=== PATIENT | male | born 1960 | race Hispanic/Latino ===

== ENCOUNTER 2017-05-16 20:23 | Inpatient (IN) | payer OTHER ==
[2017-05-16] MEDS ORDERED: levoFLOXacin 750 mg in D5W 750 MG/150 ML BAG IVPB STA (21:16)
[2017-05-16] MEDS ORDERED: Sodium Chloride 0.9% 1,000 ML IV STA (21:17)
[2017-05-16] MEDS ORDERED: Albuterol 0.083% Inhal Sol (2.5 mg/3 mL) UD IH STA (21:30)
--- NOTE | 2017-05-16 21:37 | ED PDOC ---
Arrival/HPI <Jayant Quinonez - Last Filed: 05/16/17 23:08> - General Historian: Patient, Family - History of Present Illness Time/Duration: Other (last night) Symptom Onset: Gradual Symptom Course: Worsening Quality: Aching Severity Level: 7 <Adrienne Stuart - Last Filed: 05/17/17 00:19> - General Chief Complaint: Cough, Cold, Congestion Time Seen by Provider: 05/16/17 20:27 - History of Present Illness Narrative History of Present Illness (Text): 05/16/17 21:32 56yr old male presents today sent in by urgent care for evaluation of Pneumonia. pt states yesterday he started to fell a fullness in his chest. pt states he vomited twice last night. pt states he was having fever of 101 at home. pt denies abdominal pain. pt c/o generalized weakness. pt states he is a diabetic. denies diarrhea. pt c/o cp, cough, sob. pt states he went to urgent care and had xray which showed Pneumonia and was told to come to ER. no medications were given in urgent care. (Adrienne Stuart) Past Medical History - Provider Review Nursing Documentation Reviewed: Yes - Travel History Have you recently traveled outside [place] w/in the past 3 mons?: No - Tetanus Immunization Tetanus Immunization: Unknown - Pulmonary Hx Asthma: Yes - Endocrine/Metabolic Hx Diabetes Mellitus Type 2: Yes - Psychiatric Hx Substance Use: No - Surgical History Other/Comment: brain surgery 12 years ago - Anesthesia Hx Anesthesia: Yes <Adrienne Stuart - Last Filed: 05/17/17 00:19> Family/Social History - Physician Review Nursing Documentation Reviewed: Yes Family/Social History: Unknown Family HX Smoking Status: Never Smoked Hx Alcohol Use: No Hx Substance Use: No <Adrienne Stuart - Last Filed: 05/17/17 00:19> Allergies/Home Meds <Jayant Quinonez - Last Filed: 05/16/17 23:08> <Adrienne Stuart - Last Filed: 05/17/17 00:19> Allergies/Adverse Reactions: Allergies Penicillins Allergy (Verified 05/16/17 21:03) ITCHING Home Medications: Home Meds Medication Instructions Recorded Confirmed Albuterol HFA [Ventolin HFA 90 1 puff IH Q3 PRN 05/16/17 05/16/17 mcg/actuation (8 g)] Atorvastatin [Lipitor] 20 mg PO DAILY 05/16/17 05/16/17 Lisinopril [Zestril] 10 mg PO DAILY 05/16/17 05/16/17 Naltrexone HCl/Bupropion HCl 90 mg PO DAILY 05/16/17 05/16/17 [Contrave ER 8-90 mg Tablet] Quetiapine Fumarate [Seroquel] 100 mg PO DAILY 05/16/17 05/16/17 metFORMIN [glucOPHAGE] 500 mg PO BID 05/16/17 05/16/17 Review of Systems - Review of Systems Constitutional: Fatigue, Fevers Eyes: absent: Vision Changes, Photophobia ENT: absent: Sore Throat, Sinus Congestion Respiratory: SOB, Cough, Wheezing Cardiovascular: Chest Pain. absent: Palpitations Gastrointestinal: Vomiting. absent: Abdominal Pain, Nausea Genitourinary Male: absent: Dysuria Musculoskeletal: absent: Arthralgias, Back Pain, Neck Pain Skin: absent: Rash, Pruritis Neurological: absent: Headache, Dizziness Psychiatric: absent: Anxiety, Depression <Adrienne Stuart T - Last Filed: 05/17/17 00:19> Physical Exam Vital Signs Reviewed: Yes Temperature: Febrile Blood Pressure: Normal Pulse: Tachycardic Respiratory Rate: Normal Appearance: Positive for: Well-Appearing, Non-Toxic, Comfortable Pain Distress: None Mental Status: Positive for: Alert and Oriented X 3 - Systems Exam Head: Present: Atraumatic Mouth: Present: Moist Mucous Membranes Neck: Present: Normal Range of Motion, Trachea Midline. No: Meningeal Signs Respiratory/Chest: Present: Good Air Exchange, Wheezes, Rhonchi, Tachypneic. No : Clear to Auscultation, Respiratory Distress, Accessory Muscle Use Cardiovascular: Present: Tachycardic. No: Murmurs Abdomen: No: Tenderness, Distention, Rebound, Guarding Back: Present: Normal Inspection Upper Extremity: Present: Normal ROM Lower Extremity: Present: Normal ROM Neurological: Present: GCS=15, Speech Normal Skin: Present: Warm, Dry, Normal Color. No: Rashes Psychiatric: Present: Alert, Oriented x 3 <Adrienne Stuart T - Last Filed: 05/17/17 00:19> Vital Signs Temp Pulse Resp BP Pulse Ox 05/16/17 23:18 98.4 F 98 H 18 79/39 L 95 05/16/17 23:10 98.4 F 112 H 16 82/30 L 92 L 05/16/17 22:55 98.4 F 103 H 15 93/51 L 94 L 05/16/17 22:40 98.4 F 102 H 15 101/42 L 94 L 05/16/17 22:25 98.5 F 98 H 16 94/53 L 95 05/16/17 22:10 98.4 F 99 H 16 99/36 L 94 L 05/16/17 22:00 103.8 F H 05/16/17 21:35 103.8 F H 05/16/17 21:00 99.6 F 118 H 20 107/52 L 93 L Medical Decision Making <Jayant Quinonez - Last Filed: 05/16/17 23:08> <Adrienne Stuart - Last Filed: 05/17/17 00:19> ED Course and Treatment: 05/16/17 21:38 56yr old diabetic male with PNA diagnosed on outpatient xray. pt febrile, tachycardic, hypoxic; pt given NS iv bolus albuterol neb tylenol given PO lactate 3.9; code sepsis called. pt was seen and evaluated by dr. quinonez. cbc; wbc; 19 cmp: bun; 29 cr: 1.5 trop: 0.01 ekgsinus tachycardia at 113 b/m, rbbb cxr; right middle lobe infiltrate pt given 3,930 CC NS in total. blood pressures continue to fluctuate and patient remains slightly hypotensive will consult ICU. Pt seen and evaluated by dr. GOSS, ICU; patient accepted to ICU dr. quinonez spoke with dr. estrada; dr. estrada would like patient to be admitted to hospitalist service. case again discussed with dr. goss; accepts ICU admission to hospitalist service. impression; pneumonia, septic shock admit ICU (Adrienne Stuart) - Lab Interpretations Lab Results: 05/16/17 21:35 05/16/17 21:35 Lab Results 05/16/17 22:42: Phosphorus 1.9 L, Magnesium 1.3 L 05/16/17 21:35: Influenza Typ A,B (EIA) Negative for flu a/b 05/16/17 21:35: pO2 41, VBG pH 7.39, VBG pCO2 40.0, VBG HCO3 24.2, VBG Total CO2 25.4, VBG O2 Sat (Calc) 85.2 H, VBG Base Excess -0.7 L, VBG Potassium 4.7, Sodium 133.0, Chloride 100.0, Glucose 299 H, Lactate 3.9 H, FiO2 21.0, Venous Blood Potassium 4.7 05/16/17 21:35: WBC 19.0 H, RBC 4.67, Hgb 13.7 L, Hct 40.1 L, MCV 85.9, MCH 29.3 , MCHC 34.2, RDW 13.3, Plt Count 210, MPV 9.7, Gran % 91.5 H, Lymph % (Auto) 4.4 L, [place] % (Auto) 4.1, Eos % (Auto) 0.0 L, Baso % (Auto) 0.0, Gran # 17.35 H , Lymph # (Auto) 0.8 L, [place] # (Auto) 0.8 H, Eos # (Auto) 0.0, Baso # (Auto) 0.00, Neutrophils % (Manual) 81 H, Band Neutrophils % 8 H, Lymphocytes % (Manual ) 6 L, Monocytes % (Manual) 5, Platelet Evaluation Normal, Anisocytosis (manual ) Slight 05/16/17 21:35: Sodium 137, Chloride 100, Potassium 4.7, Carbon Dioxide 23, Anion Gap 18, BUN 29 H, Creatinine 1.5, Est GFR ( Amer) 59, Est GFR (Non- Af Amer) 49, Random Glucose 287 H, Calcium 9.6, Total Bilirubin 1.0, AST 45, ALT 58 H, Alkaline Phosphatase 37 L, Lactate Dehydrogenase 425, Total Creatine Kinase 559 H, CK-MB (CK-2) 0.6, CK-MB (CK-2) % Cancelled, Troponin I < 0.01, Total Protein 6.8, Albumin 3.9, Globulin 2.9, Albumin/Globulin Ratio 1.3 05/16/17 21:35: PT 16.3 H, INR 1.42 H, APTT 33.0 - RAD Interpretation Radiology Orders: 05/16/17 21:16 CHEST PORTABLE [RAD] Stat - Medication Orders Current Medication Orders: Acetaminophen (Tylenol 325mg Tab) 650 mg PO Q6H PRN PRN Reason: Fever >100.4 F Albuterol/Ipratropium (Duoneb 3 Mg/0.5 Mg (3 Ml) Ud) 3 ml IH [id number] ANAY Albuterol/Ipratropium (Duoneb 3 Mg/0.5 Mg (3 Ml) Ud) 3 ml IH Q2H PRN PRN Reason: Shortness of Breath Atorvastatin Calcium (Lipitor) 20 mg PO DAILY ANAY Famotidine (Pepcid) 20 mg PO BID ANAY Sodium Chloride (Sodium Chloride 0.9%) 1,000 mls @ 100 mls/hr IV .Q10H ANAY Quetiapine Fumarate (Seroquel) 100 mg PO DAILY ANAY PRN Reason: Protocol Discontinued Medications Acetaminophen (Tylenol 325mg Tab) 975 mg PO STAT STA Stop: 05/16/17 21:16 Last Admin: 05/16/17 22:00 Dose: 975 mg MAR Pain/Vitals Document 05/16/17 22:00 AB (Rec: 05/16/17 22:00 AB [id number]) Vitals Temperature (97.6 F-99.6 F) 103.8 F Temperature Source Rectal Albuterol Sulfate (Albuterol 0.083% Inhal Merle (2.5 Mg/3 Ml) Ud) 2.5 mg IH STAT STA Stop: 05/16/17 21:31 Last Admin: 05/16/17 21:59 Dose: 2.5 mg Levofloxacin/Dextrose (Levaquin 750mg) 750 mg in 150 mls @ 100 mls/hr IVPB STAT STA PRN Reason: Protocol Stop: 05/16/17 22:45 Last Admin: 05/16/17 22:00 Dose: 100 mls/hr eMAR Start Stop Document 05/16/17 22:00 AB (Rec: 05/16/17 22:00 AB [id number]) Intravenous Solution Start Date 05/16/17 Start Time 22:00 End Date 05/16/17 End time 23:30 Total Infusion Time 90 Sodium Chloride (Sodium Chloride 0.9%) 1,000 mls @ 999 mls/hr IV .Q1H1M STA Stop: 05/16/17 22:17 Last Admin: 05/16/17 21:59 Dose: 999 mls/hr eMAR Start Stop Document 05/16/17 21:59 AB (Rec: 05/16/17 21:59 AB [id number]) Intravenous Solution Start Date 05/16/17 Start Time 21:59 End Date 05/16/17 End time 22:59 Total Infusion Time 60 Sodium Chloride (Sodium Chloride 0.9%) 2,930 mls @ 2,000 mls/hr IV .Q1H28M ONE Stop: 05/16/17 23:37 Last Admin: 05/16/17 22:24 Dose: 2,000 mls/hr eMAR Start Stop Document 05/16/17 22:24 AB (Rec: 05/16/17 22:24 AB [id number]) Intravenous Solution Start Date 05/16/17 Start Time 23:37 - PA / BSA OFFICER / Resident Statement / has reviewed & agrees with the documentation as recorded. / has examined the patient and agrees with the treatment plan. <Jayant Quinonez - Last Filed: 05/16/17 23:08> Disposition/Present on Arrival <Jayant Quinonez - Last Filed: 05/16/17 23:08> - Present on Arrival Any Indicators Present on Arrival: No History of DVT/PE: No History of Uncontrolled Diabetes: No Urinary Catheter: No History of Decub. Ulcer: No History Surgical Site Infection Following: None - Disposition Have Diagnosis and Disposition been Completed?: Yes Disposition Time: 23:20 Patient Plan: Admission, ICU <Adrienne Stuart - Last Filed: 05/17/17 00:19> - Disposition Diagnosis: Pneumonia, Septic shock Disposition: HOSPITALIZED Patient Problems: Current Active Problems Problem Status Onset Pneumonia Acute Septic shock Acute Condition: FAIR Referrals: Julien Park [Primary Care Provider] - Follow up with primary Forms: [employer] ([place])
[2017-05-16 22:06] LABS: VENOUS BLOOD GAS BASE EXCESS -0.7 mmol/L (0.0-2.0); VENOUS BLOOD GAS PO2 41 mm/Hg (30-55); VENOUS BLOOD PH 7.39 (7.32-7.43)
[2017-05-16 22:08] LABS: GRAN # 17.35 (1.4-6.5); GRAN % 91.5 % (50.0-68.0); HEMOGLOBIN 13.7 g/dL (14.0-18.0); LYMPH # 0.8 (1.2-3.4); LYMPH % 4.4 % (22.0-35.0); MEAN CELL VOLUME 85.9 fl (80.0-105.0); MEAN CORPUSCULAR HEMOGLOBIN 29.3 pg (25.0-35.0); MEAN CORPUSCULAR HGB CONC 34.2 g/dl (31.0-37.0); MEAN PLATELET VOLUME 9.7 fl (7.0-11.0); MONO # 0.8 (0.1-0.6); MONO % 4.1 % (1.0-6.0); PLATELET COUNT 210 10^3/uL (120.0-450.0); RBC 4.67 10^6/uL (3.5-6.1); RED CELL DISTRIBUTION WIDTH 13.3 % (11.5-14.5)
[2017-05-16] MEDS ORDERED: SODIUM CHLORIDE 0.9% IV ONE (22:10)
[2017-05-16 22:19] LABS: ALB/GLOB RATIO 1.3 (1.1-1.8); ALBUMIN 3.9 g/dL (3.0-4.8); ALT/SGPT 58 U/L (7-56); AST/SGOT 45 U/L (17-59); BLOOD UREA NITROGEN 29 mg/dL (7-21); CALCIUM 9.6 mg/dL (8.4-10.5); GFR AFRICAN-AMERICAN 59; GFR NON-AFRICAN AMERICAN 49
[2017-05-16 22:31] LABS: TROPONIN I < 0.01 ng/mL
[2017-05-16 22:32] LABS: INR 1.42 (0.93-1.08); PROTHROMBIN TIME 16.3 SECONDS (9.4-12.5)
[2017-05-16 22:42] LABS: ANISOCYTOSIS SLIGHT; BAND 8 % (0-2); LYMPHOCYTE 6 % (22.0-35.0); MONOCYTE 5 % (1.0-6.0); NEUTROPHIL 81 % (50.0-70.0); PLATELET ESTIMATE NORMAL (NORMAL)
[2017-05-16 22:44] LABS: CK-MB 0.6 ng/mL (0.0-3.6)
[2017-05-16] MEDS ORDERED: Albuterol-Ipratrop 3 mg / 0.5 (3 ml) UD IH PRN (23:29)
[2017-05-16] MEDS ORDERED: Sodium Chloride 0.9% 1,000 ML IV SCH (23:30)
[2017-05-16] MEDS ORDERED: Potassium Phosphate 15 MMOLE in Sodium Chloride 0.9% 250 ML IVPB ONE (23:33)
[2017-05-16] MEDS ORDERED: Magnesium Sulfate 2 GM in Sodium Chloride 0.9% 100 ML IVPB ONE (23:33)
[2017-05-16] MEDS ORDERED: Vancomycin 1gm in NS 250ml 1 GM/250 ML BAG IVPB STA (23:43)
[2017-05-16] MEDS: Sodium Chloride 0.9% 1,000 ML IV SCH (23:58)
--- NOTE | 2017-05-17 01:00 | PCM.SEPTIC ---
Sepsis Progress Note - Reassessment Type Date of Evaluation: 05/17/17 Time of Evaluation: 12:30 Reassessment Type: Non-invasive reassessment - Non Invasive Reassessment Were the most recent vital sign reviewed: Yes Vital Sign (Latest): Temp Pulse Resp BP Pulse Ox 98.4 F 98 H 18 79/39 L 95 05/16/17 23:18 05/16/17 23:18 05/16/17 23:18 05/16/17 23:18 05/16/17 23:18 Cardiovascular: Yes: Regular Rate, Rhythm. No: JVD, Murmur Respiratory: Yes: Rhonchi. No: Wheezing, Respiratory Distress Capillary Refill: Normal (Less than 2 sec) Skin: Normal Color, Warm, Dry
[2017-05-17 01:18] LABS: VENOUS BLOOD GAS PO2 49 mm/Hg (30-55); VENOUS BLOOD PH 7.31 (7.32-7.43)
[2017-05-17] MEDS: Albuterol-Ipratrop 3 mg / 0.5 (3 ml) UD IH SCH ×4 (01:28→19:59)
--- NOTE | 2017-05-17 03:16 | CP.PCM.CON ---
History of Present Illness - History of Present Illness History of Present Illness: Rina Tinajero, PGY1, ICU Consult Note for Dr Eubanks: CC: sob, cough, fevers 56 year old male with PMH DM, HTN, HLD, seizure disorder (last seizure 12 years ago), psoriasis, presents for sob, fever, chills for past 2 days. Pt went to urgent care for similar symptoms, which showed pneumonia. Pt was sent here for treatment. Pt recalls that he was in in usual state of health until 2 days ago, he started feeling fever 101F, chills, mild cough with white sputum, body aches , with some associated nonbloody, yellow vomiting episodesx2 yesterday, decreased oral food/fluid intake. Denies headache, neck pain, change in mental status, wheezing, cp, pleurisy, abdominal pain, diarrhea, hematochezia, melena, urinary symptoms, leg swelling. Denies recent travel, sick contacts, airplane travel/air conditioning exposure. In ED, pt febrile 103, hypotensive 82/30, leukocytosis 19 with bandemia 8, lactate 3.9, BUN/Cr 29/1.5. Code sepsis called in Ed. Given Vanco and Levaquin, adequate fluid resuscitation with good response. 12 point ROS obtained and negative, except as per HPI. PMH: DM, HTN, HLD, seizure disorder (last seizure 12 years ago), psoriasis PSH: brain surgery x1 All: PCN - rash FH: Mother, brain tumor Father, CABG SH: Works in high school. Denies tobacco/alcohol/drugs. Lives with . Review of Systems - Review of Systems All systems: reviewed and no additional remarkable complaints except Review of Systems: as per hpi Past Patient History - Tetanus Immunizations Tetanus Immunization: Unknown - Past Social History Smoking Status: Never Smoked - PULMONARY Hx Asthma: Yes - ENDOCRINE/METABOLIC Hx Diabetes Mellitus Type 2: Yes - PSYCHIATRIC Hx Substance Use: No - SURGICAL HISTORY Other/Comment: brain surgery 12 years ago - ANESTHESIA Hx Anesthesia: Yes Meds Allergies/Adverse Reactions: Allergies Allergy/AdvReac Type Severity Reaction Status Date / Time Penicillins Allergy ITCHING Verified 05/16/17 21:03 - Medications Medications: Current Medications Acetaminophen (Tylenol 325mg Tab) 650 mg PO Q6H PRN PRN Reason: Fever >100.4 F Albuterol/Ipratropium (Duoneb 3 Mg/0.5 Mg (3 Ml) Ud) 3 ml IH [id number] [facility] Last Admin: 05/17/17 01:28 Dose: 3 ml Albuterol/Ipratropium (Duoneb 3 Mg/0.5 Mg (3 Ml) Ud) 3 ml IH Q2H PRN PRN Reason: Shortness of Breath Atorvastatin Calcium (Lipitor) 20 mg PO DAILY [facility] Famotidine (Pepcid) 20 mg PO BID [facility] Levofloxacin/Dextrose (Levaquin 750mg) 750 mg in 150 mls @ 100 mls/hr IVPB DAILY [facility] PRN Reason: Protocol Potassium Phosphate 15 mmole/ (Sodium Chloride) 255 mls @ 42.5 mls/hr IVPB ONCE ONE Stop: 05/17/17 05:32 Last Admin: 05/16/17 23:58 Dose: 42.5 mls/hr Sodium Chloride (Sodium Chloride 0.9%) 1,000 mls @ 125 mls/hr IV .Q8H [facility] Last Admin: 05/16/17 23:58 Dose: 125 mls/hr Insulin Human Regular (Humulin R Med) 0 units SC ACHS [facility] PRN Reason: Protocol Oseltamivir Phosphate (Tamiflu Cap) 75 mg PO BID [facility] PRN Reason: Protocol Stop: 05/21/17 23:41 Last Admin: 05/16/17 23:58 Dose: 75 mg Quetiapine Fumarate (Seroquel) 100 mg PO DAILY [facility] PRN Reason: Protocol Physical Exam - Constitutional Appears: Non-toxic, No Acute Distress - Head Exam Head Exam: ATRAUMATIC, NORMOCEPHALIC - Eye Exam Eye Exam: EOMI, PERRL. absent: Conjunctival injection, Nystagmus, Scleral icterus Pupil Exam: NORMAL ACCOMODATION, PERRL. absent: Fixed, Irregular, Unequal - ENT Exam ENT Exam: Mucous Membranes Moist - Neck Exam Neck exam: Positive for: Full Rom - Respiratory Exam Respiratory Exam: Decreased Breath Sounds, NORMAL BREATHING PATTERN. absent: Accessory Muscle Use, Rales, Rhonchi, Wheezes, Respiratory Distress, Stridor - Cardiovascular Exam Cardiovascular Exam: RRR, +S1, +S2. absent: Systolic Murmur - GI/Abdominal Exam GI & Abdominal Exam: Normal Bowel Sounds, Soft. absent: Distended, Firm, Guarding, Hernia, Mass, Rigid, Tenderness - Extremities Exam Extremities exam: Positive for: normal inspection. Negative for: calf tenderness, pedal edema - Back Exam Back exam: NORMAL INSPECTION - Neurological Exam Neurological exam: Alert, Oriented x3 - Psychiatric Exam Psychiatric exam: Normal Affect, Normal Mood - Skin Skin Exam: Dry, Normal Color, Warm Results - Vital Signs Recent Vital Signs: Last Vital Signs Temp 98.2 F 05/17/17 01:00 Pulse 105 H 05/17/17 01:00 Resp 16 05/17/17 01:00 BP 123/52 L 05/17/17 01:00 Pulse Ox 94 L 05/17/17 01:00 - Labs Result Diagrams: 05/16/17 21:35 05/16/17 21:35 Labs: Laboratory Results - last 24 hr 05/17/17 01:00 pO2 49 VBG pH 7.31 L VBG pCO2 42.0 VBG HCO3 21.1 VBG Total CO2 22.4 VBG O2 Sat (Calc) 89.8 H VBG Base Excess -5.0 L VBG Potassium 4.1 Sodium 136.0 Chloride 106.0 Glucose 255 H Lactate 3.3 H FiO2 21.0 Venous Blood Potassium 4.1 Assessment & Plan - Assessment and Plan (Free Text) Assessment: 56 year old male with PMH HTN, HLD, DM, presents for sob, cough, found to have pneumonia: Severe sepsis: 2/2 community acquired pneumonia, influenza - febrile 103, hypotensive 82/30, leukocytosis 19 with bandemia 8, lactate 3.9-> 3.3, - Code sepsis called in ED, given 3.9L NS bolus and Levaquin. - CXR shows right middle lobe infiltrate, official read pending - NS@ 125. Maintain MAP>60 - Rapid Influenza negative; antibodies pending - Started on Levaquin, tamiflu - Strep, Legionella - Duonebs harsha, prn - tylenol prn ROLAND: - BUN/Cr 29/1.5 - UA, Uosm, Urine electrolytes - Na, Cr - Gentle hydration - daily cmp Hypomagnesemia: - repleted Hypophosphatemia: - repleted Hx of HLD: - c/w home lipitor Hx of HTN: - hold home antihtn in setting of severe sepsis/hypotension -cont to monitor Hx of DM: - ISS Discussed with Dr Eubanks. - Date & Time Date: 05/17/17 Time: 03:16
[2017-05-17 04:03] VITALS: BMI 41.1
[2017-05-17 04:52] LABS: PH,URINE 5.5 (4.7-8.0); URINE BILIRUBIN SMALL (NEGATIVE); URINE BLOOD NEGATIVE (NEGATIVE); URINE GLUCOSE (UA) NEGATIVE (NEGATIVE); URINE LEUKOCYTE ESTERASE TRACE Leu/uL (NEGATIVE); URINE PROTEIN TRACE mg/dL (<30 mg/dL); URINE UROBILINOGEN 0.2 E.U./dL (<1 E.U./dL)
[2017-05-17 05:00] LABS: URINE APPEARANCE CLEAR (CLEAR); URINE COLOR YELLOW (YELLOW)
[2017-05-17 05:03] LABS: URINE BACTERIA FEW (NEG); URINE COARSE GRANULAR CAST TRACE /hpf (0-2); URINE HYALINE CAST 0 - 2 /hpf; URINE RBC 0 - 2 /hpf (0-2)
[2017-05-17 05:42] LABS: CREATININE,RANDOM URINE 325 mg/dL
[2017-05-17 06:53] LABS: BASO # 0.01 K/mm3 (0.0-2.0); BASO % 0.1 % (0.0-3.0); GRAN # 13.57 (1.4-6.5); GRAN % 87.5 % (50.0-68.0); HEMOGLOBIN 11.8 g/dL (14.0-18.0); LYMPH # 1.2 (1.2-3.4); LYMPH % 7.6 % (22.0-35.0); MEAN CELL VOLUME 86.1 fl (80.0-105.0); MEAN CORPUSCULAR HEMOGLOBIN 28.8 pg (25.0-35.0); MEAN CORPUSCULAR HGB CONC 33.4 g/dl (31.0-37.0); MEAN PLATELET VOLUME 9.6 fl (7.0-11.0); MONO # 0.8 (0.1-0.6); MONO % 4.8 % (1.0-6.0); RBC 4.1 10^6/uL (3.5-6.1); RED CELL DISTRIBUTION WIDTH 13.5 % (11.5-14.5); WHITE BLOOD COUNT 15.5 10^3/ul (4.5-11.0)
[2017-05-17 06:59] LABS: INR 1.59 (0.93-1.08); PROTHROMBIN TIME 18.4 SECONDS (9.4-12.5)
[2017-05-17 07:12] LABS: ALB/GLOB RATIO 1.2 (1.1-1.8); ALBUMIN 3.1 g/dL (3.0-4.8); ALT/SGPT 51 U/L (7-56); AST/SGOT 40 U/L (17-59); BLOOD UREA NITROGEN 25 mg/dL (7-21); CALCIUM 8.2 mg/dL (8.4-10.5); GFR AFRICAN-AMERICAN > 60; GFR NON-AFRICAN AMERICAN > 60
--- NOTE | 2017-05-17 07:58 | CP.CCUPN ---
<KassiJake - Last Filed: 05/17/17 10:02> CCU Subjective - Physician Review Subjective (Free Text): Jake Mcdonald PGY1 ICU Progress Note for Dr. Singh Patient was seen and examined at bedside in ICU. there were no acute overnight events; Tmax from around time of admission was 103.8, however, patient has been afebrile since. The patient states that he is feeling better, breathing better and was feeling warm but comfortable. he denies chest pain, n/v. BP responded to fluid resuscitation and did not require pressors. CCU Objective - Vital Signs / Intake & Output Vital Signs (Last 4 hours): Vital Signs Temp Pulse Resp BP Pulse Ox 05/17/17 06:00 99 H 30 H 108/53 L 92 L 05/17/17 05:00 101 H 27 H 115/49 L 92 L 05/17/17 04:00 98.8 F 99 H 28 H 106/54 L 93 L Intake and Output (Last 8hrs): Intake & Output 05/16/17 05/17/17 05/17/17 22:59 06:59 14:59 Intake Total 1200 Output Total 300 Balance 900 Weight 303 lb Intake: IV 1000 Left Hand 1000 Oral 200 Output: Urine 300 Urine, Voided 300 Other: Voiding Method Urinal - Physical Exam Head: Positive for: Atraumatic, Normocephalic Pupils: Positive for: PERRL Extroacular Muscles: Positive for: EOMI Conjunctiva: Positive for: Normal Mouth: Positive for: Moist Mucous Membranes Neck: Positive for: Normal Range of Motion, Trachea Midline. Negative for: Meningeal Signs Respiratory/Chest: Positive for: Good Air Exchange, Rhonchi (b/l ). Negative for: Clear to Auscultation, Respiratory Distress, Accessory Muscle Use, Wheezes , Tachypneic Cardiovascular: Positive for: Regular Rate and Rhythm, Normal S1, S2. Negative for: Murmurs Abdomen: Positive for: Normal Bowel Sounds, Other (obese male). Negative for: Tenderness, Distention, Rebound, Guarding Back: Positive for: Normal Inspection Upper Extremity: Positive for: Normal Inspection, Normal ROM Lower Extremity: Positive for: Normal Inspection, Normal ROM Neurological: Positive for: GCS=15, CN II-XII Intact, Speech Normal Skin: Positive for: Warm, Dry, Normal Color. Negative for: Rashes Psychiatric: Positive for: Alert, Oriented x 3, Normal Insight, Normal Concentration - Medications Active Medications: Active Medications Generic Name Dose Route Start Last Admin Trade Name Freq PRN Reason Stop Dose Admin Acetaminophen 650 mg 05/16/17 23:29 Tylenol 325mg Tab PO Q6H PRN Fever >100.4 F Albuterol/Ipratropium 3 ml 05/17/17 02:00 05/17/17 07:15 Duoneb 3 Mg/0.5 Mg (3 Ml) Ud IH 3 ml [id number] HARSHA Administration Albuterol/Ipratropium 3 ml 05/16/17 23:29 Duoneb 3 Mg/0.5 Mg (3 Ml) Ud IH Q2H PRN Shortness of Breath Atorvastatin Calcium 20 mg 05/17/17 10:00 Lipitor PO DAILY HARSHA Famotidine 20 mg 05/17/17 10:00 Pepcid PO BID HARSHA Levofloxacin/Dextrose 750 mg in 150 mls @ 100 mls/hr 05/17/17 10:00 Levaquin 750mg IVPB DAILY [facility] Protocol Sodium Chloride 1,000 mls @ 125 mls/hr 05/16/17 23:37 05/16/17 23:58 Sodium Chloride 0.9% IV 125 mls/hr .Q8H HARSHA Administration Insulin Human Regular 0 units 05/17/17 07:30 Humulin R Med SC [facility] Protocol Oseltamivir Phosphate 75 mg 05/16/17 23:45 05/16/17 23:58 Tamiflu Cap PO 05/21/17 23:41 75 mg BID HARSHA Administration Protocol Quetiapine Fumarate 100 mg 05/17/17 10:00 Seroquel PO DAILY [facility] Protocol - Patient Studies Lab Studies: Lab Studies 05/17/17 05/17/17 05/17/17 Range/Units 06:00 06:00 06:00 WBC 15.5 H (4.5-11.0) 10^3/ul RBC 4.10 (3.5-6.1) 10^6/uL Hgb 11.8 L (14.0-18.0) g/dL Hct 35.3 L (42.0-52.0) % MCV 86.1 (80.0-105.0) fl MCH 28.8 (25.0-35.0) pg MCHC 33.4 (31.0-37.0) g/dl RDW 13.5 (11.5-14.5) % Plt Count 159 (120.0-450.0) 10^3/uL MPV 9.6 (7.0-11.0) fl Gran % 87.5 H (50.0-68.0) % Lymph % (Auto) 7.6 L (22.0-35.0) % [place] % (Auto) 4.8 (1.0-6.0) % Eos % (Auto) 0.0 L (1.5-5.0) % Baso % (Auto) 0.1 (0.0-3.0) % Gran # 13.57 H (1.4-6.5) Lymph # (Auto) 1.2 (1.2-3.4) [place] # (Auto) 0.8 H (0.1-0.6) Eos # (Auto) 0.0 (0.0-0.7) Baso # (Auto) 0.01 (0.0-2.0) K/mm3 PT 18.4 H (9.4-12.5) SECONDS INR 1.59 H (0.93-1.08) pO2 (30-55) mm/Hg VBG pH (7.32-7.43) VBG pCO2 (40-60) VBG HCO3 (21-28) mmol/l VBG Total CO2 (22-28) mmol.L VBG O2 Sat (Calc) (40-65) % VBG Base Excess (0.0-2.0) mmol/L VBG Potassium (3.6-5.2) mmol/L Sodium 138 (132-148) mmol/L Chloride 107 (98-107) mmol/L Glucose (75-110) mg/dl Lactate (0.7-2.1) mmol/L FiO2 % Potassium 4.2 (3.6-5.0) mmol/L Carbon Dioxide 20 L (21-33) mmol/L Anion Gap 16 (10-20) BUN 25 H (7-21) mg/dL Creatinine 1.0 (0.8-1.5) mg/dl Est GFR ( Amer) > 60 Est GFR (Non-Af Amer) > 60 Random Glucose 210 H (70-110) mg/dL Calcium 8.2 L (8.4-10.5) mg/dL Phosphorus 2.8 (2.5-4.5) mg/dL Magnesium 1.6 L (1.7-2.2) mg/dL Total Bilirubin 0.6 (0.2-1.3) mg/dL AST 40 (17-59) U/L ALT 51 (7-56) U/L Alkaline Phosphatase 35 L (38-126) U/L Total Protein 5.8 (5.8-8.3) g/dL Albumin 3.1 (3.0-4.8) g/dL Globulin 2.7 gm/dL Albumin/Globulin Ratio 1.2 (1.1-1.8) Venous Blood Potassium (3.6-5.2) mmol/L Urine Color (YELLOW) Urine Appearance (CLEAR) Urine pH (4.7-8.0) Ur Specific [place] (1.005-1.035) Urine Protein (<30 mg/dL) mg/dL Urine Glucose (UA) (NEGATIVE) mg/dL Urine Ketones (NEGATIVE) mg/dL Urine Blood (NEGATIVE) Urine Nitrate (NEGATIVE) Urine Bilirubin (NEGATIVE) Urine Urobilinogen (<1 E.U./dL) E.U./dL Ur Leukocyte Esterase (NEGATIVE) Dannielle/uL Urine RBC (0-2) /hpf Urine WBC (0-6) /hpf Ur Epithelial Cells (0-5) /hpf Urine Bacteria (NEG) Hyaline Casts /hpf Coarse Granular Casts (0-2) /hpf Ur Random Creatinine mg/dL Ur Random Sodium meq/L 05/17/17 05/17/17 05/17/17 Range/Units 03:25 03:25 01:00 WBC (4.5-11.0) 10^3/ul RBC (3.5-6.1) 10^6/uL Hgb (14.0-18.0) g/dL Hct (42.0-52.0) % MCV (80.0-105.0) fl MCH (25.0-35.0) pg MCHC (31.0-37.0) g/dl RDW (11.5-14.5) % Plt Count (120.0-450.0) 10^3/uL MPV (7.0-11.0) fl Gran % (50.0-68.0) % Lymph % (Auto) (22.0-35.0) % [place] % (Auto) (1.0-6.0) % Eos % (Auto) (1.5-5.0) % Baso % (Auto) (0.0-3.0) % Gran # (1.4-6.5) Lymph # (Auto) (1.2-3.4) [place] # (Auto) (0.1-0.6) Eos # (Auto) (0.0-0.7) Baso # (Auto) (0.0-2.0) K/mm3 PT (9.4-12.5) SECONDS INR (0.93-1.08) pO2 49 (30-55) mm/Hg VBG pH 7.31 L (7.32-7.43) VBG pCO2 42.0 (40-60) VBG HCO3 21.1 (21-28) mmol/l VBG Total CO2 22.4 (22-28) mmol.L VBG O2 Sat (Calc) 89.8 H (40-65) % VBG Base Excess -5.0 L (0.0-2.0) mmol/L VBG Potassium 4.1 (3.6-5.2) mmol/L Sodium 136.0 (132-148) mmol/L Chloride 106.0 (98-107) mmol/L Glucose 255 H (75-110) mg/dl Lactate 3.3 H (0.7-2.1) mmol/L FiO2 21.0 % Potassium (3.6-5.0) mmol/L Carbon Dioxide (21-33) mmol/L Anion Gap (10-20) BUN (7-21) mg/dL Creatinine (0.8-1.5) mg/dl Est GFR ( Amer) Est GFR (Non-Af Amer) Random Glucose (70-110) mg/dL Calcium (8.4-10.5) mg/dL Phosphorus (2.5-4.5) mg/dL Magnesium (1.7-2.2) mg/dL Total Bilirubin (0.2-1.3) mg/dL AST (17-59) U/L ALT (7-56) U/L Alkaline Phosphatase (38-126) U/L Total Protein (5.8-8.3) g/dL Albumin (3.0-4.8) g/dL Globulin gm/dL Albumin/Globulin Ratio (1.1-1.8) Venous Blood Potassium 4.1 (3.6-5.2) mmol/L Urine Color Yellow (YELLOW) Urine Appearance Clear (CLEAR) Urine pH 5.5 (4.7-8.0) Ur Specific [place] 1.025 (1.005-1.035) Urine Protein Trace H (<30 mg/dL) mg/dL Urine Glucose (UA) Negative (NEGATIVE) mg/dL Urine Ketones Trace H (NEGATIVE) mg/dL Urine Blood Negative (NEGATIVE) Urine Nitrate Positive H (NEGATIVE) Urine Bilirubin Small H (NEGATIVE) Urine Urobilinogen 0.2 (<1 E.U./dL) E.U./dL Ur Leukocyte Esterase Trace H (NEGATIVE) Dannielle/uL Urine RBC 0 - 2 (0-2) /hpf Urine WBC 5 - 10 (0-6) /hpf Ur Epithelial Cells 3 - 4 (0-5) /hpf Urine Bacteria Few (NEG) Hyaline Casts 0 - 2 /hpf Coarse Granular Casts Trace H (0-2) /hpf Ur Random Creatinine 325 mg/dL Ur Random Sodium 20 meq/L Laboratory Results - last 24 hr 05/17/17 05/17/17 05/17/17 01:00 03:25 03:25 WBC RBC Hgb Hct MCV MCH MCHC RDW Plt Count MPV Gran % Lymph % (Auto) [place] % (Auto) Eos % (Auto) Baso % (Auto) Gran # Lymph # (Auto) [place] # (Auto) Eos # (Auto) Baso # (Auto) PT INR pO2 49 VBG pH 7.31 L VBG pCO2 42.0 VBG HCO3 21.1 VBG Total CO2 22.4 VBG O2 Sat (Calc) 89.8 H VBG Base Excess -5.0 L VBG Potassium 4.1 Sodium 136.0 Chloride 106.0 Glucose 255 H Lactate 3.3 H FiO2 21.0 Potassium Carbon Dioxide Anion Gap BUN Creatinine Est GFR ( Amer) Est GFR (Non-Af Amer) Random Glucose Calcium Phosphorus Magnesium Total Bilirubin AST ALT Alkaline Phosphatase Total Protein Albumin Globulin Albumin/Globulin Ratio Venous Blood Potassium 4.1 Urine Color Yellow Urine Appearance Clear Urine pH 5.5 Ur Specific [place] 1.025 Urine Protein Trace H Urine Glucose (UA) Negative Urine Ketones Trace H Urine Blood Negative Urine Nitrate Positive H Urine Bilirubin Small H Urine Urobilinogen 0.2 Ur Leukocyte Esterase Trace H Urine RBC 0 - 2 Urine WBC 5 - 10 Ur Epithelial Cells 3 - 4 Urine Bacteria Few Hyaline Casts 0 - 2 Coarse Granular Casts Trace H Ur Random Creatinine 325 Ur Random Sodium 20 05/17/17 05/17/17 05/17/17 06:00 06:00 06:00 WBC 15.5 H RBC 4.10 Hgb 11.8 L Hct 35.3 L MCV 86.1 MCH 28.8 MCHC 33.4 RDW 13.5 Plt Count 159 MPV 9.6 Gran % 87.5 H Lymph % (Auto) 7.6 L [place] % (Auto) 4.8 Eos % (Auto) 0.0 L Baso % (Auto) 0.1 Gran # 13.57 H Lymph # (Auto) 1.2 [place] # (Auto) 0.8 H Eos # (Auto) 0.0 Baso # (Auto) 0.01 PT 18.4 H INR 1.59 H pO2 VBG pH VBG pCO2 VBG HCO3 VBG Total CO2 VBG O2 Sat (Calc) VBG Base Excess VBG Potassium Sodium 138 Chloride 107 Glucose Lactate FiO2 Potassium 4.2 Carbon Dioxide 20 L Anion Gap 16 BUN 25 H Creatinine 1.0 Est GFR ( Amer) > 60 Est GFR (Non-Af Amer) > 60 Random Glucose 210 H Calcium 8.2 L Phosphorus 2.8 Magnesium 1.6 L Total Bilirubin 0.6 AST 40 ALT 51 Alkaline Phosphatase 35 L Total Protein 5.8 Albumin 3.1 Globulin 2.7 Albumin/Globulin Ratio 1.2 Venous Blood Potassium Urine Color Urine Appearance Urine pH Ur Specific [place] Urine Protein Urine Glucose (UA) Urine Ketones Urine Blood Urine Nitrate Urine Bilirubin Urine Urobilinogen Ur Leukocyte Esterase Urine RBC Urine WBC Ur Epithelial Cells Urine Bacteria Hyaline Casts Coarse Granular Casts Ur Random Creatinine Ur Random Sodium Fingerstick Blood Sugar Results: 200 Review of Systems - Review of Systems All systems: reviewed and no additional remarkable complaints except (as per HPI ) Critical Care Progress Note - Extremities/Vascular Does the Patient have a Central Venous Catheter?: No Does the Patient need a Central Venous Catheter?: No Does the Patient have a Jacobo Catheter?: No Does the Patient need a Jacobo Catheter?: No - Prophylaxis GI Prophylaxis GI: PPI - Prophylaxis DVT Prophylaxis DVT: SCDs, Ambulatory Assessment/Plan - Assessment and Plan (Free Text) Assessment: 56 year old male with PMH HTN, HLD, DM, presents for sob, cough, and is being treated for severe sepsis with hypotension and ROLAND likely 2/2 pneumonia. Sepsis has improved with fluid resuscitation. Patient is hemodynamically stable and breathing is improved. Plan: Neuro: awake and alert, at baseline monitor for signs of mental status changes Cardio: Echo ordered BP is stable and improved w/ fluids not requiring pressors EKG in ED was sinus tachy w/ RBBB cont Lipitor Pulm: breathing has improved, no wheezing noted on exam, only moderate rhonchi CXR showed RLL infiltrate CT Chest ordered O2 NC PRN Vanc x1 was given in ED, stopped due to ROLAND cont Levaquin ID consulted, recs appreciated duoneb prn and harsha GI: HHD GI ppx Renal: ROLAND resolved Cr improved monitor UOP strict I/O hypomagnesemia noted and repleted cont to monitor electorlyte changes Heme: H/H stable leukocytosis improved ID: procal ordered cont Levaquin for CAP Vanc x1 was given in ED, stopped due to ROLAND cont Tamiflu maintain normal temp tylenol prn influenza, legionella and pneumonia ordered blood, urine, sputum cultures and MRSA screen ordered ID consulted, recs appreciated Endo: ISS Accuchecks TSH normal Psych: cont Seroquel Diet: consistent carb GI PPX: Pepcid DVT PPX: SCDs Dispo: hemodynamically stable, respiratory status improved. cleared for transfer from ICU to med-surg for treatment of penumonia. Patient was seen, examined and discussed with attending, Dr. Francisco Solitario PGY1 Pager # [phone] <Jose Maria Singh - Last Filed: 05/17/17 10:25> CCU Objective - Vital Signs / Intake & Output Intake and Output (Last 8hrs): Intake & Output 05/16/17 05/17/17 05/17/17 22:59 06:59 14:59 Intake Total 1200 Output Total 300 Balance 900 Weight 303 lb Intake: IV 1000 Left Hand 1000 Oral 200 Output: Urine 300 Urine, Voided 300 Other: Voiding Method Urinal - Medications Active Medications: Active Medications Generic Name Dose Route Start Last Admin Trade Name Freq PRN Reason Stop Dose Admin Acetaminophen 650 mg 05/16/17 23:29 Tylenol 325mg Tab PO Q6H PRN Fever >100.4 F Albuterol/Ipratropium 3 ml 05/17/17 02:00 05/17/17 07:15 Duoneb 3 Mg/0.5 Mg (3 Ml) Ud IH 3 ml [id number] HARSHA Administration Albuterol/Ipratropium 3 ml 05/16/17 23:29 Duoneb 3 Mg/0.5 Mg (3 Ml) Ud IH Q2H PRN Shortness of Breath Atorvastatin Calcium 20 mg 05/17/17 10:00 05/17/17 09:20 Lipitor PO 20 mg DAILY HARSHA Administration Famotidine 20 mg 05/17/17 10:00 05/17/17 09:20 Pepcid PO 20 mg BID HARSHA Administration Levofloxacin/Dextrose 750 mg in 150 mls @ 100 mls/hr 05/17/17 10:00 05/17/17 09:20 Levaquin 750mg IVPB 100 mls/hr DAILY HARSHA Administration Protocol Sodium Chloride 1,000 mls @ 125 mls/hr 05/16/17 23:37 05/16/17 23:58 Sodium Chloride 0.9% IV 125 mls/hr .Q8H HARSHA Administration Insulin Human Regular 0 units 05/17/17 07:30 05/17/17 09:27 Humulin R Med SC Not Given ACHS HARSHA Protocol Oseltamivir Phosphate 75 mg 05/16/17 23:45 05/17/17 09:20 Tamiflu Cap PO 05/21/17 23:41 75 mg BID HARSHA Administration Protocol Quetiapine Fumarate 100 mg 05/17/17 10:00 05/17/17 09:20 Seroquel PO 100 mg DAILY HARSHA Administration Protocol - Patient Studies Lab Studies: Lab Studies 05/17/17 05/17/17 05/17/17 Range/Units 06:00 06:00 06:00 WBC 15.5 H (4.5-11.0) 10^3/ul RBC 4.10 (3.5-6.1) 10^6/uL Hgb 11.8 L (14.0-18.0) g/dL Hct 35.3 L (42.0-52.0) % MCV 86.1 (80.0-105.0) fl MCH 28.8 (25.0-35.0) pg MCHC 33.4 (31.0-37.0) g/dl RDW 13.5 (11.5-14.5) % Plt Count 159 (120.0-450.0) 10^3/uL MPV 9.6 (7.0-11.0) fl Gran % 87.5 H (50.0-68.0) % Lymph % (Auto) 7.6 L (22.0-35.0) % [place] % (Auto) 4.8 (1.0-6.0) % Eos % (Auto) 0.0 L (1.5-5.0) % Baso % (Auto) 0.1 (0.0-3.0) % Gran # 13.57 H (1.4-6.5) Lymph # (Auto) 1.2 (1.2-3.4) [place] # (Auto) 0.8 H (0.1-0.6) Eos # (Auto) 0.0 (0.0-0.7) Baso # (Auto) 0.01 (0.0-2.0) K/mm3 PT 18.4 H (9.4-12.5) SECONDS INR 1.59 H (0.93-1.08) pO2 (30-55) mm/Hg VBG pH (7.32-7.43) VBG pCO2 (40-60) VBG HCO3 (21-28) mmol/l VBG Total CO2 (22-28) mmol.L VBG O2 Sat (Calc) (40-65) % VBG Base Excess (0.0-2.0) mmol/L VBG Potassium (3.6-5.2) mmol/L Sodium 138 (132-148) mmol/L Chloride 107 (98-107) mmol/L Glucose (75-110) mg/dl Lactate (0.7-2.1) mmol/L FiO2 % Potassium 4.2 (3.6-5.0) mmol/L Carbon Dioxide 20 L (21-33) mmol/L Anion Gap 16 (10-20) BUN 25 H (7-21) mg/dL Creatinine 1.0 (0.8-1.5) mg/dl Est GFR ( Amer) > 60 Est GFR (Non-Af Amer) > 60 Random Glucose 210 H (70-110) mg/dL Calcium 8.2 L (8.4-10.5) mg/dL Phosphorus 2.8 (2.5-4.5) mg/dL Magnesium 1.6 L (1.7-2.2) mg/dL Total Bilirubin 0.6 (0.2-1.3) mg/dL AST 40 (17-59) U/L ALT 51 (7-56) U/L Alkaline Phosphatase 35 L (38-126) U/L Total Protein 5.8 (5.8-8.3) g/dL Albumin 3.1 (3.0-4.8) g/dL Globulin 2.7 gm/dL Albumin/Globulin Ratio 1.2 (1.1-1.8) Venous Blood Potassium (3.6-5.2) mmol/L Urine Color (YELLOW) Urine Appearance (CLEAR) Urine pH (4.7-8.0) Ur Specific [place] (1.005-1.035) Urine Protein (<30 mg/dL) mg/dL Urine Glucose (UA) (NEGATIVE) mg/dL Urine Ketones (NEGATIVE) mg/dL Urine Blood (NEGATIVE) Urine Nitrate (NEGATIVE) Urine Bilirubin (NEGATIVE) Urine Urobilinogen (<1 E.U./dL) E.U./dL Ur Leukocyte Esterase (NEGATIVE) Dannielle/uL Urine RBC (0-2) /hpf Urine WBC (0-6) /hpf Ur Epithelial Cells (0-5) /hpf Urine Bacteria (NEG) Hyaline Casts /hpf Coarse Granular Casts (0-2) /hpf Ur Random Creatinine mg/dL Ur Random Sodium meq/L 05/17/17 05/17/17 05/17/17 Range/Units 03:25 03:25 01:00 WBC (4.5-11.0) 10^3/ul RBC (3.5-6.1) 10^6/uL Hgb (14.0-18.0) g/dL Hct (42.0-52.0) % MCV (80.0-105.0) fl MCH (25.0-35.0) pg MCHC (31.0-37.0) g/dl RDW (11.5-14.5) % Plt Count (120.0-450.0) 10^3/uL MPV (7.0-11.0) fl Gran % (50.0-68.0) % Lymph % (Auto) (22.0-35.0) % [place] % (Auto) (1.0-6.0) % Eos % (Auto) (1.5-5.0) % Baso % (Auto) (0.0-3.0) % Gran # (1.4-6.5) Lymph # (Auto) (1.2-3.4) [place] # (Auto) (0.1-0.6) Eos # (Auto) (0.0-0.7) Baso # (Auto) (0.0-2.0) K/mm3 PT (9.4-12.5) SECONDS INR (0.93-1.08) pO2 49 (30-55) mm/Hg VBG pH 7.31 L (7.32-7.43) VBG pCO2 42.0 (40-60) VBG HCO3 21.1 (21-28) mmol/l VBG Total CO2 22.4 (22-28) mmol.L VBG O2 Sat (Calc) 89.8 H (40-65) % VBG Base Excess -5.0 L (0.0-2.0) mmol/L VBG Potassium 4.1 (3.6-5.2) mmol/L Sodium 136.0 (132-148) mmol/L Chloride 106.0 (98-107) mmol/L Glucose 255 H (75-110) mg/dl Lactate 3.3 H (0.7-2.1) mmol/L FiO2 21.0 % Potassium (3.6-5.0) mmol/L Carbon Dioxide (21-33) mmol/L Anion Gap (10-20) BUN (7-21) mg/dL Creatinine (0.8-1.5) mg/dl Est GFR ( Amer) Est GFR (Non-Af Amer) Random Glucose (70-110) mg/dL Calcium (8.4-10.5) mg/dL Phosphorus (2.5-4.5) mg/dL Magnesium (1.7-2.2) mg/dL Total Bilirubin (0.2-1.3) mg/dL AST (17-59) U/L ALT (7-56) U/L Alkaline Phosphatase (38-126) U/L Total Protein (5.8-8.3) g/dL Albumin (3.0-4.8) g/dL Globulin gm/dL Albumin/Globulin Ratio (1.1-1.8) Venous Blood Potassium 4.1 (3.6-5.2) mmol/L Urine Color Yellow (YELLOW) Urine Appearance Clear (CLEAR) Urine pH 5.5 (4.7-8.0) Ur Specific [place] 1.025 (1.005-1.035) Urine Protein Trace H (<30 mg/dL) mg/dL Urine Glucose (UA) Negative (NEGATIVE) mg/dL Urine Ketones Trace H (NEGATIVE) mg/dL Urine Blood Negative (NEGATIVE) Urine Nitrate Positive H (NEGATIVE) Urine Bilirubin Small H (NEGATIVE) Urine Urobilinogen 0.2 (<1 E.U./dL) E.U./dL Ur Leukocyte Esterase Trace H (NEGATIVE) Dannielle/uL Urine RBC 0 - 2 (0-2) /hpf Urine WBC 5 - 10 (0-6) /hpf Ur Epithelial Cells 3 - 4 (0-5) /hpf Urine Bacteria Few (NEG) Hyaline Casts 0 - 2 /hpf Coarse Granular Casts Trace H (0-2) /hpf Ur Random Creatinine 325 mg/dL Ur Random Sodium 20 meq/L Laboratory Results - last 24 hr 05/17/17 05/17/17 05/17/17 01:00 03:25 03:25 WBC RBC Hgb Hct MCV MCH MCHC RDW Plt Count MPV Gran % Lymph % (Auto) [place] % (Auto) Eos % (Auto) Baso % (Auto) Gran # Lymph # (Auto) [place] # (Auto) Eos # (Auto) Baso # (Auto) PT INR pO2 49 VBG pH 7.31 L VBG pCO2 42.0 VBG HCO3 21.1 VBG Total CO2 22.4 VBG O2 Sat (Calc) 89.8 H VBG Base Excess -5.0 L VBG Potassium 4.1 Sodium 136.0 Chloride 106.0 Glucose 255 H Lactate 3.3 H FiO2 21.0 Potassium Carbon Dioxide Anion Gap BUN Creatinine Est GFR ( Amer) Est GFR (Non-Af Amer) Random Glucose Calcium Phosphorus Magnesium Total Bilirubin AST ALT Alkaline Phosphatase Total Protein Albumin Globulin Albumin/Globulin Ratio Venous Blood Potassium 4.1 Urine Color Yellow Urine Appearance Clear Urine pH 5.5 Ur Specific [place] 1.025 Urine Protein Trace H Urine Glucose (UA) Negative Urine Ketones Trace H Urine Blood Negative Urine Nitrate Positive H Urine Bilirubin Small H Urine Urobilinogen 0.2 Ur Leukocyte Esterase Trace H Urine RBC 0 - 2 Urine WBC 5 - 10 Ur Epithelial Cells 3 - 4 Urine Bacteria Few Hyaline Casts 0 - 2 Coarse Granular Casts Trace H Ur Random Creatinine 325 Ur Random Sodium 20 05/17/17 05/17/17 05/17/17 06:00 06:00 06:00 WBC 15.5 H RBC 4.10 Hgb 11.8 L Hct 35.3 L MCV 86.1 MCH 28.8 MCHC 33.4 RDW 13.5 Plt Count 159 MPV 9.6 Gran % 87.5 H Lymph % (Auto) 7.6 L [place] % (Auto) 4.8 Eos % (Auto) 0.0 L Baso % (Auto) 0.1 Gran # 13.57 H Lymph # (Auto) 1.2 [place] # (Auto) 0.8 H Eos # (Auto) 0.0 Baso # (Auto) 0.01 PT 18.4 H INR 1.59 H pO2 VBG pH VBG pCO2 VBG HCO3 VBG Total CO2 VBG O2 Sat (Calc) VBG Base Excess VBG Potassium Sodium 138 Chloride 107 Glucose Lactate FiO2 Potassium 4.2 Carbon Dioxide 20 L Anion Gap 16 BUN 25 H Creatinine 1.0 Est GFR ( Amer) > 60 Est GFR (Non-Af Amer) > 60 Random Glucose 210 H Calcium 8.2 L Phosphorus 2.8 Magnesium 1.6 L Total Bilirubin 0.6 AST 40 ALT 51 Alkaline Phosphatase 35 L Total Protein 5.8 Albumin 3.1 Globulin 2.7 Albumin/Globulin Ratio 1.2 Venous Blood Potassium Urine Color Urine Appearance Urine pH Ur Specific [place] Urine Protein Urine Glucose (UA) Urine Ketones Urine Blood Urine Nitrate Urine Bilirubin Urine Urobilinogen Ur Leukocyte Esterase Urine RBC Urine WBC Ur Epithelial Cells Urine Bacteria Hyaline Casts Coarse Granular Casts Ur Random Creatinine Ur Random Sodium Assessment/Plan - Assessment and Plan (Free Text) Assessment: Patient seen and examined, on rounds with resident, agree with note with following additions/exceptions: Patient is 56 year old male with PMH DM, HTN, HLD, seizure disorder (last seizure 12 years ago), psoriasis, presents for sob, fever, chills for past 2 days, severe CAP, severe sepsis. Currently afebrile, HD stable, comfortable in NAD. Reports to be feeling better. Severe CAP Severe Sepsis ROLAND SOB Fever Recommend: - supp o2 as needed - Antibiotics, Vanco Levaquin - would DC tamiflu, rapid influenza negative - folllow up procal, UCx, BCx, Sputum culture - IVF hydration - FS control - monitor HH - GI ppx - DVT ppx - stable transfer to floor
--- NOTE | 2017-05-17 08:52 | RAD ---
HISTORY: chest pain COMPARISON: KeyNo prior. FINDINGS: LUNGS: Right lower lobe infiltrate consistent with pneumonia. PLEURA: No significant pleural effusion identified, no pneumothorax apparent. CARDIOVASCULAR: Cardiomegaly. No evidence of acute, significant cardiovascular disease. OSSEOUS STRUCTURES: No significant abnormalities. VISUALIZED UPPER ABDOMEN: Normal. OTHER FINDINGS: None. IMPRESSION: Right lower lobe infiltrate. Concordant results with the preliminary interpretation rendered by the emergency department physician procedure.
[2017-05-17] MEDS: levoFLOXacin 750 mg in D5W 750 MG/150 ML BAG IVPB SCH (09:20)
[2017-05-17] MEDS: Insulin Reg-MEDIUM-Coverage SC SCH ×4 (09:27→22:38)
[2017-05-17 11:32] LABS: OSMOLALITY,URINE 756 mosm/kg (300-1000)
[2017-05-17] MEDS: Sodium Chloride 0.9% 1,000 ML IV SCH ×2 (12:29→22:38)
--- NOTE | 2017-05-17 16:26 | CARD ---
APPROVED REPORT EXAM: Two-dimensional and M-mode echocardiogram with Doppler and color Doppler. INDICATION R/O CAUSES OF EFFUSION CXR 2D DIMENSIONS Left Atrium (2D)4.1 (1.6-4.0cm)IVSd1.2 (0.7-1.1cm) LVDd4.6 (3.9-5.9cm)PWd1.1 (0.7-1.1cm) LVDs3.3 (2.5-4.0cm)FS (%) 27.7 % LVEF (%)53.8 (>50%) M-Mode DIMENSIONS Aortic Root3.70 (2.2-3.7cm)Aortic Cusp Exc.1.70 (1.5-2.0cm) Aortic Valve AoV Peak Ypoxtlqz374.0cm/Carlos Peak GR.13mmHg Mitral Valve MV E Ragjoevn279.0cm/sMV A Sshxjinn180.0cm/sE/A ratio0.9 TDI Lateral E' Peak V12.80cm/sMedial E' Peak V7.41cm/sE/Lateral E'8.4 E/Medial E'14.6 Pulmonary Valve PV Peak Wxvegeln88.5cm/sPV Peak Grad.2mmHg Tricuspid Valve TR Peak Rwtrwsdr429jm/sRAP [id number] Peak Gr.35mmHg [id number] LEFT VENTRICLE The left ventricle is normal size. There is normal left ventricular wall thickness. The left ventricular function is normal. The left ventricular ejection fraction is within the normal range. There is normal LV segmental wall motion. Transmitral Doppler flow pattern is Grade I-abnormal relaxation pattern. RIGHT VENTRICLE The right ventricle is mildly dilated. There is normal right ventricular wall thickness. The right ventricular systolic function is normal. ATRIA The left atrium size is normal. The right atrium is mildly dilated. AORTIC VALVE The aortic valve is normal in structure. No aortic regurgitation is present. There is no aortic valvular stenosis. MITRAL VALVE The mitral valve is normal in structure. There is no mitral valve regurgitation noted. TRICUSPID VALVE There is mild to moderate pulmonary hypertension. GREAT VESSELS The aortic root is normal in size. The IVC was not visualized. <Conclusion> The left ventricle is normal size. There is normal left ventricular wall thickness. The left ventricular function is normal. The left ventricular ejection fraction is within the normal range. There is normal LV segmental wall motion. Transmitral Doppler flow pattern is Grade I-abnormal relaxation pattern. There is mild to moderate pulmonary hypertension.
--- NOTE | 2017-05-17 17:05 | CARD ---
APPROVED REPORT EKG Measurement Heart [id number] ME [id number] <Conclusion> Normal sinus rhythm Right bundle branch block Abnormal ECG
--- NOTE | 2017-05-17 17:16 | CARD ---
APPROVED REPORT EKG Measurement Heart [id number] <Conclusion> Sinus tachycardia Right bundle branch block Abnormal ECG
--- NOTE | 2017-05-17 17:41 | CP.PCM.CON ---
History of Present Illness - History of Present Illness History of Present Illness: Infectious Disease Consultation: May 17, 2017 56 yo male with extensive past medical history of DM, HTN, Hyperlipidemia, seizure history, and psoriasis presented with fevers up to 101.0 F at home as well as chills and SOB for 2 days prior to admission. He also felt body aches with nausea and vomiting. Admitted to MICU for evaluation. Started on Levaquin and given a dose of Vancomycin in the ER. Fevers as high as 103.2 F in hospital. [place] cultures sent. Leukocytosis up to 19 and Procalcitonin of 11.45. PMHx: DM, HTN, Hyperlipidemia, Seizure History, Psoriasis PSHx: Brain surgery Allergies: PCN - rash Social Hx: No tobacco, EtOH, or illicit drugs. 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 Active Medications Acetaminophen (Tylenol 325mg Tab) 650 mg PO Q6H PRN PRN Reason: Fever >100.4 F Albuterol/Ipratropium (Duoneb 3 Mg/0.5 Mg (3 Ml) Ud) 3 ml IH [id number] [facility] Last Admin: 05/17/17 13:47 Dose: 3 ml Albuterol/Ipratropium (Duoneb 3 Mg/0.5 Mg (3 Ml) Ud) 3 ml IH Q2H PRN PRN Reason: Shortness of Breath Atorvastatin Calcium (Lipitor) 20 mg PO DAILY [facility] Last Admin: 05/17/17 09:20 Dose: 20 mg Famotidine (Pepcid) 20 mg PO BID [facility] Last Admin: 05/17/17 09:20 Dose: 20 mg Levofloxacin/Dextrose (Levaquin 750mg) 750 mg in 150 mls @ 100 mls/hr IVPB DAILY [facility] PRN Reason: Protocol Last Admin: 05/17/17 09:20 Dose: 100 mls/hr Sodium Chloride (Sodium Chloride 0.9%) 1,000 mls @ 125 mls/hr IV .Q8H [facility] Last Admin: 05/17/17 12:29 Dose: 125 mls/hr Insulin Human Regular (Humulin R Med) 0 units SC ACHS [facility] PRN Reason: Protocol Last Admin: 05/17/17 12:27 Dose: 1 units Oseltamivir Phosphate (Tamiflu Cap) 75 mg PO BID [facility] PRN Reason: Protocol Stop: 05/21/17 23:41 Last Admin: 05/17/17 09:20 Dose: 75 mg Quetiapine Fumarate (Seroquel) 100 mg PO DAILY [facility] PRN Reason: Protocol Last Admin: 05/17/17 09:20 Dose: 100 mg Family Hx: mother - brain tumor ROS: Fevers, chills, body aches, nausea, vomiting No chest pain, abdominal pain, melena, hematuria, hematemesis, hematochezia, depression, anxiety, vision loss, hearing loss, loss of consciousness. Past Patient History - Tetanus Immunizations Tetanus Immunization: Unknown - Past Social History Smoking Status: Never Smoked - CARDIAC Hx Cardiac Disorders: No - PULMONARY Hx Asthma: Yes - NEUROLOGICAL Hx Seizures: Yes Other/Comment: epilepsy - HEENT Other/Comment: near sighted use eyeglasses - RENAL Hx Chronic Kidney Disease: No - ENDOCRINE/METABOLIC Hx Diabetes Mellitus Type 2: Yes - HEMATOLOGICAL/ONCOLOGICAL Hx Hepatitis A: Yes - INTEGUMENTARY Hx Psoriasis: Yes - MUSCULOSKELETAL/RHEUMATOLOGICAL Hx Musculoskeletal Disorders: No Hx Falls: No - GASTROINTESTINAL Hx Gastrointestinal Disorders: No - GENITOURINARY/GYNECOLOGICAL Hx Genitourinary Disorders: No - PSYCHIATRIC Hx Substance Use: No - SURGICAL HISTORY Other/Comment: brain surgery 12 years ago - ANESTHESIA Hx Anesthesia: Yes Meds Allergies/Adverse Reactions: Allergies Allergy/AdvReac Type Severity Reaction Status Date / Time Penicillins Allergy ITCHING Verified 05/16/17 21:03 - Medications Medications: Current Medications Acetaminophen (Tylenol 325mg Tab) 650 mg PO Q6H PRN PRN Reason: Fever >100.4 F Albuterol/Ipratropium (Duoneb 3 Mg/0.5 Mg (3 Ml) Ud) 3 ml IH [id number] [facility] Last Admin: 05/17/17 13:47 Dose: 3 ml Albuterol/Ipratropium (Duoneb 3 Mg/0.5 Mg (3 Ml) Ud) 3 ml IH Q2H PRN PRN Reason: Shortness of Breath Atorvastatin Calcium (Lipitor) 20 mg PO DAILY [facility] Last Admin: 05/17/17 09:20 Dose: 20 mg Famotidine (Pepcid) 20 mg PO BID [facility] Last Admin: 05/17/17 09:20 Dose: 20 mg Levofloxacin/Dextrose (Levaquin 750mg) 750 mg in 150 mls @ 100 mls/hr IVPB DAILY [facility] PRN Reason: Protocol Last Admin: 05/17/17 09:20 Dose: 100 mls/hr Sodium Chloride (Sodium Chloride 0.9%) 1,000 mls @ 125 mls/hr IV .Q8H [facility] Last Admin: 05/17/17 12:29 Dose: 125 mls/hr Insulin Human Regular (Humulin R Med) 0 units SC ACHS [facility] PRN Reason: Protocol Last Admin: 05/17/17 12:27 Dose: 1 units Oseltamivir Phosphate (Tamiflu Cap) 75 mg PO BID [facility] PRN Reason: Protocol Stop: 05/21/17 23:41 Last Admin: 05/17/17 09:20 Dose: 75 mg Quetiapine Fumarate (Seroquel) 100 mg PO DAILY [facility] PRN Reason: Protocol Last Admin: 05/17/17 09:20 Dose: 100 mg Physical Exam - Constitutional Appears: Non-toxic, No Acute Distress - Head Exam Head Exam: ATRAUMATIC, NORMOCEPHALIC - Eye Exam Eye Exam: EOMI, PERRL Pupil Exam: NORMAL ACCOMODATION, PERRL - ENT Exam ENT Exam: Mucous Membranes Moist, Normal External Ear Exam, TM's Normal Bilaterally - Neck Exam Neck exam: Positive for: Full Rom, Normal Inspection - Respiratory Exam Respiratory Exam: Decreased Breath Sounds. absent: Rales, Rhonchi, Wheezes - Cardiovascular Exam Cardiovascular Exam: REGULAR RHYTHM, RRR, +S1, +S2 - GI/Abdominal Exam GI & Abdominal Exam: Normal Bowel Sounds, Soft. absent: Distended, Tenderness - Extremities Exam Extremities exam: Positive for: full ROM, normal inspection - Neurological Exam Neurological exam: Alert, CN II-XII Intact, Oriented x3 - Psychiatric Exam Psychiatric exam: Normal Affect, Normal Mood - Skin Skin Exam: Intact, Normal Color Results - Vital Signs Recent Vital Signs: Last Vital Signs Temp 99.5 F 05/17/17 14:00 Pulse 76 05/17/17 14:00 Resp 18 05/17/17 14:00 BP 111/59 L 05/17/17 14:00 Pulse Ox 96 05/17/17 14:00 - Labs Result Diagrams: 05/17/17 06:00 05/17/17 06:00 Labs: Laboratory Results - last 24 hr 05/17/17 05/17/17 05/17/17 01:00 03:25 03:25 WBC RBC Hgb Hct MCV MCH MCHC RDW Plt Count MPV Gran % Lymph % (Auto) Travis % (Auto) Eos % (Auto) Baso % (Auto) Gran # Lymph # (Auto) Travis # (Auto) Eos # (Auto) Baso # (Auto) PT INR pO2 49 VBG pH 7.31 L VBG pCO2 42.0 VBG HCO3 21.1 VBG Total CO2 22.4 VBG O2 Sat (Calc) 89.8 H VBG Base Excess -5.0 L VBG Potassium 4.1 Sodium 136.0 Chloride 106.0 Glucose 255 H Lactate 3.3 H FiO2 21.0 Potassium Carbon Dioxide Anion Gap BUN Creatinine Est GFR ( Amer) Est GFR (Non-Af Amer) Random Glucose Calcium Phosphorus Magnesium Total Bilirubin AST ALT Alkaline Phosphatase Total Protein Albumin Globulin Albumin/Globulin Ratio Venous Blood Potassium 4.1 Urine Color Urine Appearance Urine pH Ur Specific [place] Urine Protein Urine Glucose (UA) Urine Ketones Urine Blood Urine Nitrate Urine Bilirubin Urine Urobilinogen Ur Leukocyte Esterase Urine RBC Urine WBC Ur Epithelial Cells Urine Bacteria Hyaline Casts Coarse Granular Casts Urine Osmolality 756 Ur Random Creatinine 325 Ur Random Sodium 20 Ur L.pneumophila Ag Negative 05/17/17 05/17/17 05/17/17 03:25 06:00 06:00 WBC 15.5 H RBC 4.10 Hgb 11.8 L Hct 35.3 L MCV 86.1 MCH 28.8 MCHC 33.4 RDW 13.5 Plt Count 159 MPV 9.6 Gran % 87.5 H Lymph % (Auto) 7.6 L Travis % (Auto) 4.8 Eos % (Auto) 0.0 L Baso % (Auto) 0.1 Gran # 13.57 H Lymph # (Auto) 1.2 Travis # (Auto) 0.8 H Eos # (Auto) 0.0 Baso # (Auto) 0.01 PT 18.4 H INR 1.59 H pO2 VBG pH VBG pCO2 VBG HCO3 VBG Total CO2 VBG O2 Sat (Calc) VBG Base Excess VBG Potassium Sodium Chloride Glucose Lactate FiO2 Potassium Carbon Dioxide Anion Gap BUN Creatinine Est GFR ( Amer) Est GFR (Non-Af Amer) Random Glucose Calcium Phosphorus Magnesium Total Bilirubin AST ALT Alkaline Phosphatase Total Protein Albumin Globulin Albumin/Globulin Ratio Venous Blood Potassium Urine Color Yellow Urine Appearance Clear Urine pH 5.5 Ur Specific [place] 1.025 Urine Protein Trace H Urine Glucose (UA) Negative Urine Ketones Trace H Urine Blood Negative Urine Nitrate Positive H Urine Bilirubin Small H Urine Urobilinogen 0.2 Ur Leukocyte Esterase Trace H Urine RBC 0 - 2 Urine WBC 5 - 10 Ur Epithelial Cells 3 - 4 Urine Bacteria Few Hyaline Casts 0 - 2 Coarse Granular Casts Trace H Urine Osmolality Ur Random Creatinine Ur Random Sodium Ur L.pneumophila Ag 05/17/17 06:00 WBC RBC Hgb Hct MCV MCH MCHC RDW Plt Count MPV Gran % Lymph % (Auto) Travis % (Auto) Eos % (Auto) Baso % (Auto) Gran # Lymph # (Auto) Travis # (Auto) Eos # (Auto) Baso # (Auto) PT INR pO2 VBG pH VBG pCO2 VBG HCO3 VBG Total CO2 VBG O2 Sat (Calc) VBG Base Excess VBG Potassium Sodium 138 Chloride 107 Glucose Lactate FiO2 Potassium 4.2 Carbon Dioxide 20 L Anion Gap 16 BUN 25 H Creatinine 1.0 Est GFR ( Amer) > 60 Est GFR (Non-Af Amer) > 60 Random Glucose 210 H Calcium 8.2 L Phosphorus 2.8 Magnesium 1.6 L Total Bilirubin 0.6 AST 40 ALT 51 Alkaline Phosphatase 35 L Total Protein 5.8 Albumin 3.1 Globulin 2.7 Albumin/Globulin Ratio 1.2 Venous Blood Potassium Urine Color Urine Appearance Urine pH Ur Specific [place] Urine Protein Urine Glucose (UA) Urine Ketones Urine Blood Urine Nitrate Urine Bilirubin Urine Urobilinogen Ur Leukocyte Esterase Urine RBC Urine WBC Ur Epithelial Cells Urine Bacteria Hyaline Casts Coarse Granular Casts Urine Osmolality Ur Random Creatinine Ur Random Sodium Ur L.pneumophila Ag Assessment & Plan - Assessment and Plan (Free Text) Assessment: 56 yo male presenting with fevers up to 103.8 F, hypotension, leukocytosis of 19 , procalcitonin value of 11.45, signs of pneumonia on X-ray in right middle lobe. Patient with PCN allergy. Started on Levaquin orally. The patient with negative influenza screen. Influenza titers pending. Possible dehydration as well. Continue on Levaquin. Noted Tamiflu started. Cultures pending. Patient appears to be improving. Afebrile for the last 8 hours. Monitor procalcitonin trend. Supportive care. Thank you for allowing me to participate in the care of the patient, we will follow with you.
[2017-05-17] MEDS ORDERED: Magnesium Sulfate 1 gm in D5W 1 GM/100 ML BAG IVPB ONE (19:30)
[2017-05-18] MEDS: Albuterol-Ipratrop 3 mg / 0.5 (3 ml) UD IH SCH ×4 (02:48→19:34)
[2017-05-18 03:36] VITALS: RESP 20
[2017-05-18] MEDS: Sodium Chloride 0.9% 1,000 ML IV SCH ×3 (06:49→16:55)
[2017-05-18 07:26] LABS: BASO # 0.01 K/mm3 (0.0-2.0); BASO % 0.1 % (0.0-3.0); EOS % 0.2 % (1.5-5.0); GRAN # 12.41 (1.4-6.5); GRAN % 85.2 % (50.0-68.0); HEMOGLOBIN 11.6 g/dL (14.0-18.0); LYMPH # 1.5 (1.2-3.4); MEAN PLATELET VOLUME 9.5 fl (7.0-11.0); MONO # 0.7 (0.1-0.6); MONO % 4.5 % (1.0-6.0); RED CELL DISTRIBUTION WIDTH 13.7 % (11.5-14.5); WHITE BLOOD COUNT 14.6 10^3/ul (4.5-11.0)
[2017-05-18 07:43] LABS: ALB/GLOB RATIO 1.1 (1.1-1.8); ALBUMIN 3.3 g/dL (3.0-4.8); ALT/SGPT 47 U/L (7-56); AST/SGOT 37 U/L (17-59); BLOOD UREA NITROGEN 15 mg/dL (7-21); CALCIUM 8.6 mg/dL (8.4-10.5); GFR AFRICAN-AMERICAN > 60; GFR NON-AFRICAN AMERICAN > 60
[2017-05-18] MEDS ORDERED: Benzocaine/Menthol (Cepacol) Lozenge MT PRN (08:27)
[2017-05-18] MEDS: Insulin Reg-MEDIUM-Coverage SC SCH ×4 (08:51→21:56)
[2017-05-18] MEDS: levoFLOXacin 750 mg in D5W 750 MG/150 ML BAG IVPB SCH (09:58)
[2017-05-18] MEDS: guaiFENesin DM 100 mg-10 mg/5 ml UD PO PRN ×2 (09:59→17:04)
--- NOTE | 2017-05-18 10:37 | CT ---
PROCEDURE: CT Chest without contrast HISTORY: possible pneumonia on cxr COMPARISON: Plain radiograph from 05/16/2017. TECHNIQUE: Contiguous axial images were obtained through the chest without intravenous contrast enhancement. Sagittal and coronal reconstructions were performed. Radiation dose (DLP): 901.09 mGy-cm. This CT exam was performed using one or more of the following dose reduction techniques: Automated exposure control, adjustment of the mA and/or kV according to patient size, and/or use of iterative reconstruction technique. FINDINGS: LUNGS: The lungs are well inflated. There is consolidation with air bronchogram in the lateral segment of the right middle lobe and posterior basal segment of the right lower lobe. There is patchy airspace disease in the lingula and left lower lobe. There are no endobronchial lesions. MEDIASTINUM: The aorta is normal in caliber. The heart is normal in size. No pericardial effusion. No pathologic mediastinal lymphadenopathy. PLEURA: Small bilateral pleural effusions. No pneumothorax. BONES: No fracture. No destructive lesion. There is mild multilevel degenerative disc disease. UPPER ABDOMEN: Both adrenal glands are normal in size. There is fatty infiltration in the liver. OTHER FINDINGS: None. IMPRESSION: 1. Multifocal pneumonia in the lateral segment of the right middle lobe, posterior basal segment of the right lower lobe, lingula and left lower lobe, with dense consolidation in the right middle lobe. 2. Small bilateral pleural effusions.
--- NOTE | 2017-05-18 15:16 | CP.PCM.PN ---
Subjective - Date & Time of Evaluation Date of Evaluation: 05/18/17 Time of Evaluation: 15:13 - Subjective Subjective: Patient seen and examined at bedside in no acute distress with no complaints. States he is feeling much better. Admits to mild cough which still persists and is non productive. Denies shortness of breath, chest pain, nausea, vomiting, diarrhea, fevers, chills, abdominal pain. Objective - Vital Signs/Intake and Output Vital Signs (last 24 hours): Temp Pulse Resp BP Pulse Ox 98 F 83 20 126/83 95 05/18/17 06:00 05/18/17 06:00 05/18/17 06:00 05/18/17 06:00 05/18/17 06:00 Intake and Output: 05/18/17 05/18/17 06:59 18:59 Intake Total 2430 360 Balance 2430 360 - Medications Medications: Current Medications Acetaminophen (Tylenol 325mg Tab) 650 mg PO Q6H PRN PRN Reason: Fever >100.4 F Albuterol/Ipratropium (Duoneb 3 Mg/0.5 Mg (3 Ml) Ud) 3 ml IH [id number] [facility] Last Admin: 05/18/17 13:17 Dose: 3 ml Albuterol/Ipratropium (Duoneb 3 Mg/0.5 Mg (3 Ml) Ud) 3 ml IH Q2H PRN PRN Reason: Shortness of Breath Atorvastatin Calcium (Lipitor) 20 mg PO DAILY [facility] Last Admin: 05/18/17 09:58 Dose: 20 mg Benzocaine/Menthol (Cepacol Sore Throat) 1 saba MT Q2H PRN PRN Reason: Sore Throat Famotidine (Pepcid) 20 mg PO BID [facility] Last Admin: 05/18/17 09:58 Dose: 20 mg Guaifenesin/Dextromethorphan (Robitussin Dm) 5 ml PO Q4H PRN PRN Reason: Cough Last Admin: 05/18/17 09:59 Dose: 5 ml Levofloxacin/Dextrose (Levaquin 750mg) 750 mg in 150 mls @ 100 mls/hr IVPB DAILY [facility] PRN Reason: Protocol Last Admin: 05/18/17 09:58 Dose: 100 mls/hr Sodium Chloride (Sodium Chloride 0.9%) 1,000 mls @ 125 mls/hr IV .Q8H [facility] Last Admin: 05/18/17 10:06 Dose: 125 mls/hr Insulin Human Regular (Humulin R Med) 0 units SC ACHS [facility] PRN Reason: Protocol Last Admin: 05/18/17 12:27 Dose: 1 units Oseltamivir Phosphate (Tamiflu Cap) 75 mg PO BID [facility] PRN Reason: Protocol Stop: 05/21/17 23:41 Last Admin: 05/18/17 09:59 Dose: 75 mg Quetiapine Fumarate (Seroquel) 100 mg PO DAILY [facility] PRN Reason: Protocol Last Admin: 05/18/17 09:59 Dose: 100 mg - Labs Labs: 05/18/17 06:45 05/18/17 06:45 PT 18.4 SECONDS (9.4-12.5) H 05/17/17 06:00 INR 1.59 (0.93-1.08) H 05/17/17 06:00 APTT 33.0 Seconds (25.1-36.5) 05/16/17 21:35 - Constitutional Appears: Non-toxic, No Acute Distress - Head Exam Head Exam: ATRAUMATIC, NORMAL INSPECTION, NORMOCEPHALIC - Eye Exam Eye Exam: EOMI, Normal appearance - ENT Exam ENT Exam: Mucous Membranes Moist, Normal Exam - Neck Exam Neck Exam: Normal Inspection - Respiratory Exam Respiratory Exam: Clear to Ausculation Bilateral, NORMAL BREATHING PATTERN - Cardiovascular Exam Cardiovascular Exam: REGULAR RHYTHM, +S1, +S2 - GI/Abdominal Exam GI & Abdominal Exam: Soft, Normal Bowel Sounds - Extremities Exam Extremities Exam: Normal Inspection - Back Exam Back Exam: NORMAL INSPECTION - Neurological Exam Neurological Exam: Alert, Awake, Oriented x3 - Psychiatric Exam Psychiatric exam: Normal Affect, Normal Mood - Skin Skin Exam: Intact, Normal Color, Warm Assessment and Plan - Assessment and Plan (Free Text) Assessment: 56 year old male with PMH HTN, HLD, DM, presents for sob, cough, found to have pneumonia: Severe sepsis: 2/2 community acquired pneumonia, influenza - febrile 103, hypotensive 82/30, leukocytosis 19 with bandemia 8, lactate 3.9-> 3.3, - Code sepsis called in ED, given 3.9L NS bolus and Levaquin. - CXR shows right middle lobe infiltrate, official read pending - NS@ 125. Maintain MAP>60 - Rapid Influenza negative; antibodies pending - Started on Levaquin, tamiflu - Strep, Legionella - Duonebs harsha, prn - tylenol prn ROLAND: - BUN/Cr 29/1.5 - UA, Uosm, Urine electrolytes - Na, Cr - Gentle hydration - daily cmp Hypomagnesemia: - repleted Hypophosphatemia: - repleted Hx of HLD: - c/w home lipitor Hx of HTN: - hold home antihtn in setting of severe sepsis/hypotension -cont to monitor Hx of DM: - ISS
--- NOTE | 2017-05-18 18:09 | CP.PCM.PN ---
Subjective - Date & Time of Evaluation Date of Evaluation: 05/18/17 Time of Evaluation: 17:15 - Subjective Subjective: Infectious Disease Follow Up: May 18, 2017 56 yo male with extensive past medical history of DM, HTN, Hyperlipidemia, seizure history, and psoriasis presented with fevers up to 101.0 F at home as well as chills and SOB for 2 days prior to admission. He also felt body aches with nausea and vomiting. Admitted to MICU for evaluation. Started on Levaquin and given a dose of Vancomycin in the ER. Fevers as high as 103.2 F in hospital. [place] cultures sent. Leukocytosis up to 19 and Procalcitonin of 11.45. Patient improving with antibiotic therapy. Cultures have been negative to date. Objective - Vital Signs/Intake and Output Vital Signs (last 24 hours): Temp Pulse Resp BP Pulse Ox 98 F 83 20 126/83 95 05/18/17 06:00 05/18/17 06:00 05/18/17 06:00 05/18/17 06:00 05/18/17 06:00 Intake and Output: 05/18/17 05/18/17 06:59 18:59 Intake Total 2430 360 Balance 2430 360 - Medications Medications: Current Medications Acetaminophen (Tylenol 325mg Tab) 650 mg PO Q6H PRN PRN Reason: Fever >100.4 F Albuterol/Ipratropium (Duoneb 3 Mg/0.5 Mg (3 Ml) Ud) 3 ml IH [id number] [facility] Last Admin: 05/18/17 13:17 Dose: 3 ml Albuterol/Ipratropium (Duoneb 3 Mg/0.5 Mg (3 Ml) Ud) 3 ml IH Q2H PRN PRN Reason: Shortness of Breath Atorvastatin Calcium (Lipitor) 20 mg PO DAILY [facility] Last Admin: 05/18/17 09:58 Dose: 20 mg Benzocaine/Menthol (Cepacol Sore Throat) 1 saba MT Q2H PRN PRN Reason: Sore Throat Last Admin: 05/18/17 15:05 Dose: 1 saba Famotidine (Pepcid) 20 mg PO BID [facility] Last Admin: 05/18/17 17:05 Dose: 20 mg Guaifenesin/Dextromethorphan (Robitussin Dm) 5 ml PO Q4H PRN PRN Reason: Cough Last Admin: 05/18/17 17:04 Dose: 5 ml Levofloxacin/Dextrose (Levaquin 750mg) 750 mg in 150 mls @ 100 mls/hr IVPB DAILY [facility] PRN Reason: Protocol Last Admin: 05/18/17 09:58 Dose: 100 mls/hr Sodium Chloride (Sodium Chloride 0.9%) 1,000 mls @ 75 mls/hr IV .[id number] [facility] Last Admin: 05/18/17 16:55 Dose: 75 mls/hr Insulin Human Regular (Humulin R Med) 0 units SC ACHS [facility] PRN Reason: Protocol Last Admin: 05/18/17 16:53 Dose: 1 units Oseltamivir Phosphate (Tamiflu Cap) 75 mg PO BID [facility] PRN Reason: Protocol Stop: 05/21/17 23:41 Last Admin: 05/18/17 17:04 Dose: 75 mg Quetiapine Fumarate (Seroquel) 100 mg PO DAILY [facility] PRN Reason: Protocol Last Admin: 05/18/17 09:59 Dose: 100 mg - Labs Labs: 05/18/17 06:45 05/18/17 06:45 PT 18.4 SECONDS (9.4-12.5) H 05/17/17 06:00 INR 1.59 (0.93-1.08) H 05/17/17 06:00 APTT 33.0 Seconds (25.1-36.5) 05/16/17 21:35 - Constitutional Appears: Non-toxic, No Acute Distress - Head Exam Head Exam: ATRAUMATIC, NORMOCEPHALIC - Eye Exam Eye Exam: EOMI, PERRL Pupil Exam: NORMAL ACCOMODATION, PERRL - ENT Exam ENT Exam: Mucous Membranes Moist, Normal External Ear Exam, TM's Normal Bilaterally - Neck Exam Neck Exam: Full ROM, Normal Inspection - Respiratory Exam Respiratory Exam: Decreased Breath Sounds, NORMAL BREATHING PATTERN. absent: Rales, Rhonchi, Wheezes - Cardiovascular Exam Cardiovascular Exam: REGULAR RHYTHM, RRR, +S1, +S2 - GI/Abdominal Exam GI & Abdominal Exam: Soft, Normal Bowel Sounds. absent: Distended, Tenderness - Extremities Exam Extremities Exam: Full ROM, Normal Inspection - Neurological Exam Neurological Exam: Alert, Awake, CN II-XII Intact, Oriented x3 - Psychiatric Exam Psychiatric exam: Normal Affect, Normal Mood - Skin Skin Exam: Intact, Normal Color Assessment and Plan - Assessment and Plan (Free Text) Assessment: 56 yo male presenting with fevers up to 103.8 F, hypotension, leukocytosis of 19 , procalcitonin value of 11.45, signs of pneumonia on X-ray in right middle lobe. Patient with PCN allergy. Started on Levaquin orally. The patient with negative influenza screen. Influenza titers pending. Possible dehydration as well. Continue on Levaquin. Noted Tamiflu started. Cultures pending. Patient appears to be improving. Afebrile for the last 30 hours. Monitor procalcitonin trend. No specific cause found up to this point in time. Supportive care. Thank you for allowing me to participate in the care of the patient, we will follow with you.
[2017-05-19] MEDS: Albuterol-Ipratrop 3 mg / 0.5 (3 ml) UD IH SCH ×3 (01:35→13:13)
[2017-05-19] MEDS: Sodium Chloride 0.9% 1,000 ML IV SCH ×2 (03:26→05:19)
[2017-05-19 07:25] LABS: BASO # 0.02 K/mm3 (0.0-2.0); BASO % 0.2 % (0.0-3.0); EOS # 0.1 (0.0-0.7); EOS % 0.7 % (1.5-5.0); GRAN # 9.17 (1.4-6.5); HEMOGLOBIN 11.3 g/dL (14.0-18.0); LYMPH # 1.6 (1.2-3.4); LYMPH % 13.9 % (22.0-35.0); MEAN CELL VOLUME 87.8 fl (80.0-105.0); MEAN CORPUSCULAR HEMOGLOBIN 28.7 pg (25.0-35.0); MEAN CORPUSCULAR HGB CONC 32.7 g/dl (31.0-37.0); MEAN PLATELET VOLUME 9.5 fl (7.0-11.0); MONO # 0.7 (0.1-0.6); MONO % 6.2 % (1.0-6.0); RBC 3.94 10^6/uL (3.5-6.1); RED CELL DISTRIBUTION WIDTH 13.6 % (11.5-14.5); WHITE BLOOD COUNT 11.6 10^3/ul (4.5-11.0)
[2017-05-19 07:38] LABS: ALBUMIN 3.2 g/dL (3.0-4.8); ALT/SGPT 39 U/L (7-56); AST/SGOT 35 U/L (17-59); BLOOD UREA NITROGEN 12 mg/dL (7-21); CALCIUM 8.8 mg/dL (8.4-10.5); GFR AFRICAN-AMERICAN > 60; GFR NON-AFRICAN AMERICAN > 60
[2017-05-19 08:23] VITALS: BP 144/74; PULSE 78; TEMP 98.6; O2SAT 95
[2017-05-19] MEDS: guaiFENesin DM 100 mg-10 mg/5 ml UD PO PRN (10:40)
[2017-05-19] MEDS: Insulin Reg-MEDIUM-Coverage SC SCH (10:40)
[2017-05-19] MEDS: levoFLOXacin 750 mg in D5W 750 MG/150 ML BAG IVPB SCH (10:50)
--- NOTE | 2017-05-19 12:41 | CP.PCM.PN ---
Addendum entered and electronically signed by Frances Dior DO 05/19/17 12:49 : Talked to the nephew, Dr. Jake Lamas, on phone. I communicated regarding patient's hospitalization, progress, stable to discharge, and meds to discharge on. Answered all questions. Original Note: Subjective - Date & Time of Evaluation Date of Evaluation: 05/19/17 Time of Evaluation: 12:37 - Subjective Subjective: PGY-[address] Aldrich Per patient request, I have contacted patient's primary care doctor and nephew. Contacted Dr. Park at 11:[address] Park answered the phone. I have communicated with Dr. Park regarding patient's hospitalization, progress, stable to discharge , and meds to discharge on. Dr. Park asks patient to follow up with her or Dr. Parr on Monday. I communicated this to patient. Patient express understanding and will make the appointment. I have also documented this on the discharge instructions. Contacted Dr Jake Lamas on [phone], left message on phone to call back at [facility] . The time is 12:30 noon Objective - Vital Signs/Intake and Output Vital Signs (last 24 hours): Temp Pulse Resp BP Pulse Ox 98.6 F 78 20 144/74 95 05/19/17 07:30 05/19/17 07:30 05/19/17 07:30 05/19/17 07:30 05/19/17 07:30 Intake and Output: 05/19/17 05/19/17 06:59 18:59 Intake Total 120 Balance 120 - Medications Medications: Current Medications Acetaminophen (Tylenol 325mg Tab) 650 mg PO Q6H PRN PRN Reason: Fever >100.4 F Albuterol/Ipratropium (Duoneb 3 Mg/0.5 Mg (3 Ml) Ud) 3 ml IH [id number] [facility] Last Admin: 05/19/17 07:20 Dose: 3 ml Albuterol/Ipratropium (Duoneb 3 Mg/0.5 Mg (3 Ml) Ud) 3 ml IH Q2H PRN PRN Reason: Shortness of Breath Atorvastatin Calcium (Lipitor) 20 mg PO DAILY [facility] Last Admin: 05/19/17 10:40 Dose: 20 mg Benzocaine/Menthol (Cepacol Sore Throat) 1 saba MT Q2H PRN PRN Reason: Sore Throat Last Admin: 05/18/17 15:05 Dose: 1 saba Famotidine (Pepcid) 20 mg PO BID [facility] Last Admin: 05/19/17 10:40 Dose: 20 mg Guaifenesin/Dextromethorphan (Robitussin Dm) 5 ml PO Q4H PRN PRN Reason: Cough Last Admin: 05/19/17 10:40 Dose: 5 ml Levofloxacin/Dextrose (Levaquin 750mg) 750 mg in 150 mls @ 100 mls/hr IVPB DAILY [facility] PRN Reason: Protocol Last Admin: 05/19/17 10:50 Dose: 100 mls/hr Sodium Chloride (Sodium Chloride 0.9%) 1,000 mls @ 75 mls/hr IV .[id number] [facility] Last Admin: 05/19/17 05:19 Dose: Not Given Insulin Human Regular (Humulin R Med) 0 units SC ACHS [facility] PRN Reason: Protocol Last Admin: 05/19/17 10:40 Dose: Not Given Oseltamivir Phosphate (Tamiflu Cap) 75 mg PO BID [facility] PRN Reason: Protocol Stop: 05/21/17 23:41 Last Admin: 05/19/17 10:40 Dose: 75 mg Quetiapine Fumarate (Seroquel) 100 mg PO DAILY [facility] PRN Reason: Protocol Last Admin: 05/19/17 10:40 Dose: 100 mg Sodium Chloride ([place] Nasal [place]) 0 ml NS DAILY PRN PRN Reason: NASAL CONGESTION Last Admin: 05/19/17 10:56 Dose: 2 spr - Labs Labs: 05/19/17 07:00 05/19/17 07:00 PT 18.4 SECONDS (9.4-12.5) H 05/17/17 06:00 INR 1.59 (0.93-1.08) H 05/17/17 06:00 APTT 33.0 Seconds (25.1-36.5) 05/16/17 21:35
--- NOTE | 2017-05-19 16:50 | CP.PCM.DIS ---
<Carlos Miranda - Last Filed: 05/19/17 18:52> Provider - Provider Date of Admission: 05/17/17 00:22 Attending physician: Ryan Aldrich MD Primary care physician: Julien Park MD Consults: Infectious Disease: Dr. Ely ICU:Dr. Singh Time Spent in preparation of Discharge (in minutes): 45 Diagnosis - Discharge Diagnosis (1) Pneumonia Status: Acute Priority: High (2) Anxiety Status: Chronic Priority: High (3) Seizure disorder Status: Chronic Priority: High Hospital Course - Lab Results Lab Results: Micro Results 05/17/17 02:00 Sputum Gram Stain - Final 05/17/17 02:00 Sputum Sputum Culture - Final NORMAL ORAL ARMANDO 05/17/17 03:25 Nose MRSA Culture (Admit) - Final MRSA NOT DETECTED 05/17/17 03:25 Urine Urine Culture - Final No Growth (<1,000 CFU/ML) Most Recent Lab Values WBC 11.6 10^3/ul (4.5-11.0) H D 05/19/17 07:00 RBC 3.94 10^6/uL (3.5-6.1) 05/19/17 07:00 Hgb 11.3 g/dL (14.0-18.0) L 05/19/17 07:00 Hct 34.6 % (42.0-52.0) L 05/19/17 07:00 MCV 87.8 fl (80.0-105.0) 05/19/17 07:00 MCH 28.7 pg (25.0-35.0) 05/19/17 07:00 MCHC 32.7 g/dl (31.0-37.0) 05/19/17 07:00 RDW 13.6 % (11.5-14.5) 05/19/17 07:00 Plt Count 214 10^3/uL (120.0-450.0) 05/19/17 07:00 MPV 9.5 fl (7.0-11.0) 05/19/17 07:00 Gran % 79.0 % (50.0-68.0) H 05/19/17 07:00 Lymph % (Auto) 13.9 % (22.0-35.0) L 05/19/17 07:00 [place] % (Auto) 6.2 % (1.0-6.0) H 05/19/17 07:00 Eos % (Auto) 0.7 % (1.5-5.0) L 05/19/17 07:00 Baso % (Auto) 0.2 % (0.0-3.0) 05/19/17 07:00 Gran # 9.17 (1.4-6.5) H 05/19/17 07:00 Lymph # (Auto) 1.6 (1.2-3.4) 05/19/17 07:00 [place] # (Auto) 0.7 (0.1-0.6) H 05/19/17 07:00 Eos # (Auto) 0.1 (0.0-0.7) 05/19/17 07:00 Baso # (Auto) 0.02 K/mm3 (0.0-2.0) 05/19/17 07:00 Neutrophils % (Manual) 81 % (50.0-70.0) H 05/16/17 21:35 Band Neutrophils % 8 % (0-2) H 05/16/17 21:35 Lymphocytes % (Manual) 6 % (22.0-35.0) L 05/16/17 21:35 Monocytes % (Manual) 5 % (1.0-6.0) 05/16/17 21:35 Platelet Evaluation Normal (NORMAL) 05/16/17 21:35 Anisocytosis (manual) Slight 05/16/17 21:35 PT 18.4 SECONDS (9.4-12.5) H 05/17/17 06:00 INR 1.59 (0.93-1.08) H 05/17/17 06:00 APTT 33.0 Seconds (25.1-36.5) 05/16/17 21:35 pO2 49 mm/Hg (30-55) 05/17/17 01:00 VBG pH 7.31 (7.32-7.43) L 05/17/17 01:00 VBG pCO2 42.0 (40-60) 05/17/17 01:00 VBG HCO3 21.1 mmol/l (21-28) 05/17/17 01:00 VBG Total CO2 22.4 mmol.L (22-28) 05/17/17 01:00 VBG O2 Sat (Calc) 89.8 % (40-65) H 05/17/17 01:00 VBG Base Excess -5.0 mmol/L (0.0-2.0) L 05/17/17 01:00 VBG Potassium 4.1 mmol/L (3.6-5.2) 05/17/17 01:00 Sodium 136.0 mmol/L (132-148) 05/17/17 01:00 Chloride 106.0 mmol/L (98-107) 05/17/17 01:00 Glucose 255 mg/dl (75-110) H 05/17/17 01:00 Lactate 3.3 mmol/L (0.7-2.1) H 05/17/17 01:00 FiO2 21.0 % 05/17/17 01:00 Sodium 143 mmol/L (132-148) 05/19/17 07:00 Potassium 3.9 mmol/L (3.6-5.0) 05/19/17 07:00 Chloride 109 mmol/L (98-107) H 05/19/17 07:00 Carbon Dioxide 24 mmol/L (21-33) 05/19/17 07:00 Anion Gap 14 (10-20) 05/19/17 07:00 BUN 12 mg/dL (7-21) 05/19/17 07:00 Creatinine 0.7 mg/dl (0.8-1.5) L 05/19/17 07:00 Est GFR ( Amer) > 60 05/19/17 07:00 Est GFR (Non-Af Amer) > 60 05/19/17 07:00 POC Glucose (mg/dL) 166 mg/dL (65-110) H 05/19/17 11:30 Random Glucose 161 mg/dL (70-110) H 05/19/17 07:00 Hemoglobin A1c 10.8 % (4.2-6.5) H 05/19/17 07:00 Serum Osmolality 308 mosm/kg (272-300) H 05/16/17 21:35 Calcium 8.8 mg/dL (8.4-10.5) 05/19/17 07:00 Phosphorus 3.4 mg/dL (2.5-4.5) 05/19/17 07:00 Magnesium 2.2 mg/dL (1.7-2.2) 05/19/17 07:00 Total Bilirubin 0.5 mg/dL (0.2-1.3) 05/19/17 07:00 AST 35 U/L (17-59) 05/19/17 07:00 ALT 39 U/L (7-56) 05/19/17 07:00 Alkaline Phosphatase 54 U/L (38-126) 05/19/17 07:00 Lactate Dehydrogenase 425 U/L (333-699) 05/16/17 21:35 Total Creatine Kinase 559 U/L (35-230) H 05/16/17 21:35 CK-MB (CK-2) 0.6 ng/mL (0.0-3.6) 05/16/17 21:35 CK-MB (CK-2) % Cancelled 05/16/17 21:35 Troponin I < 0.01 ng/mL 05/16/17 21:35 Total Protein 6.3 g/dL (5.8-8.3) 05/19/17 07:00 Albumin 3.2 g/dL (3.0-4.8) 05/19/17 07:00 Globulin 3.1 gm/dL 05/19/17 07:00 Albumin/Globulin Ratio 1.0 (1.1-1.8) L 05/19/17 07:00 Procalcitonin 2.35 NG/ML (0.19-0.49) H 05/19/17 07:00 TSH 3rd Generation 3.36 mIU/mL (0.46-4.68) 05/16/17 21:35 Venous Blood Potassium 4.1 mmol/L (3.6-5.2) 05/17/17 01:00 Urine Color Yellow (YELLOW) 05/17/17 03:25 Urine Appearance Clear (CLEAR) 05/17/17 03:25 Urine pH 5.5 (4.7-8.0) 05/17/17 03:25 Ur Specific White 1.025 (1.005-1.035) 05/17/17 03:25 Urine Protein Trace mg/dL (<30 mg/dL) H 05/17/17 03:25 Urine Glucose (UA) Negative mg/dL (NEGATIVE) 05/17/17 03:25 Urine Ketones Trace mg/dL (NEGATIVE) H 05/17/17 03:25 Urine Blood Negative (NEGATIVE) 05/17/17 03:25 Urine Nitrate Positive (NEGATIVE) H 05/17/17 03:25 Urine Bilirubin Small (NEGATIVE) H 05/17/17 03:25 Urine Urobilinogen 0.2 E.U./dL (<1 E.U./dL) 05/17/17 03:25 Ur Leukocyte Esterase Trace Dannielle/uL (NEGATIVE) H 05/17/17 03:25 Urine RBC 0 - 2 /hpf (0-2) 05/17/17 03:25 Urine WBC 5 - 10 /hpf (0-6) 05/17/17 03:25 Ur Epithelial Cells 3 - 4 /hpf (0-5) 05/17/17 03:25 Urine Bacteria Few (NEG) 05/17/17 03:25 Hyaline Casts 0 - 2 /hpf 05/17/17 03:25 Coarse Granular Casts Trace /hpf (0-2) H 05/17/17 03:25 Urine Osmolality 756 mosm/kg (300-1000) 05/17/17 03:25 Ur Random Creatinine 325 mg/dL 05/17/17 03:25 Ur Random Sodium 20 meq/L 05/17/17 03:25 Influenza Typ A,B (EIA) Negative for flu a/b (NEGATIVE) 05/16/17 21:35 Ur L.pneumophila Ag Negative (NEGATIVE) 05/17/17 03:25 - Hospital Course Hospital Course: 56 year old male with past medical history of hypertension, hyperlipidemia, seizure disorder (last seizure 12 years ago), psoriasis, who presented with complaints of shortness of breath, fever, chills for a length of 2 days. Patient went to urgent care for similar symptoms, and was diagnosed with pneumonia. Patient was then instructed to go to [facility] [place] department for further evaluation and treatment. Patient recalled that he was in in usual state of health until 2 days ago, he started feeling fever 101F, chills, mild cough with white sputum, body aches, with some associated nonbloody, yellow vomiting episodesx2, decreased oral food/fluid intake upon initial presentation to the ED patient was found to have a white blood cell count of 19.1. While in the ED patient was found to be febrile, tachycardic and hypoxic. Patient was administered NS IV bolus as well as albuterol nebulizers and Tylenol. Blood has drawn at the time revealed a lactate of 3.9; promoting calling of code sepsis. Considering elevated white count and patient meeting SIRS criteria, a source of infection needed to be found. EKG revealed sinus tachycardia at 113 beats per minute and right bundle branch block. Cardiac enzymes were collected which revealed an initial troponin of 0.01. Urinalysis was negative for infection however chest x-ray revealed a right Middle lobe infiltrate. During course of ED patient experienced episodes of hypotension despite receiving a total of 3, 930 cc of normal saline. Intensive care unit was then consulted for further evaluation and treatment of patient's current status of septic shock secondary to right Middle lobe community acquired pneumonia. A repeat chest CT was ordered which revealed multifocal pneumonia in the lateral segment of the right middle lobe, posterior basal segment of the right lower lobe, lingula and left lower lobe, with dense consolidation in the right middle lobe as well as Small bilateral pleural effusions.Infectious disease was consulted for further management of pneumonia. Patient was placed on levaquin and continued to improve clinically during course of hospital stay. Patient was transferred to the medical surge floor where he continued to improve clinically. Patient was seen and evaluated this morning in no acute distress. Patient made it clear he was ready to go home today and wanted to be discharged if he was able to go on oral antibiotics. Patient's primary MD was made aware of his admission as well as his nephew who patient requested was called and told about patient's current clinical status during the admission and time of discharge.Patient was in agreement with plan of discharge and then discharged with appropriate medications. Case reviewed and discussed with Dr. Valdemar Miranda PGY1 Discharge Exam - Head Exam Head Exam: ATRAUMATIC, NORMOCEPHALIC - Eye Exam Eye Exam: EOMI, Normal appearance - ENT Exam ENT Exam: Mucous Membranes Moist - Respiratory Exam Respiratory Exam: Clear to PA & Lateral, NORMAL BREATHING PATTERN, UNREMARKABLE - Cardiovascular Exam Cardiovascular Exam: REGULAR RHYTHM, +S1, +S2 - GI/Abdominal Exam GI & Abdominal Exam: Normal Bowel Sounds, Unremarkable - Extremities Exam Extremities exam: normal inspection - Back Exam Back exam: NORMAL INSPECTION - Neurological Exam Neurological exam: Alert, CN II-XII Intact, Oriented x3 - Psychiatric Exam Psychiatric exam: Normal Affect, Normal Mood - Skin Skin Exam: Intact, Normal Color, Warm Discharge Plan - Discharge Medications Prescriptions: Benzocaine/Menthol [Cepacol Sore Throat] 1 saba MT Q2H PRN #14 saba PRN Reason: Sore Throat levoFLOXacin [Levaquin] 750 mg PO DAILY #7 tab Sodium Chloride Nasal Rainbow [Dixon Nasal Rainbow] 0 ml NS DAILY PRN #1 bottle PRN Reason: NASAL CONGESTION guaiFENesin/Dextromethorphan [Robitussin DM] 5 ml PO Q4H PRN #1 bottle PRN Reason: Cough Albuterol HFA [Ventolin HFA 90 mcg/actuation (8 g)] 1 puff IH Q3 PRN #1 inhaler PRN Reason: Shortness Of Breath - Follow Up Plan Condition: FAIR Disposition: HOME/ ROUTINE Instructions: Pneumonia in Adults, Smoking: Not Just Harmful to Your Lungs and Heart, Dangers of Secondhand Smoke, Preventing Falls in the Older Adult Additional Instructions: 1. Per Dr. Park's instruction, told patient to follow up with Dr. Park or Dr. Parr on Monday or Monday 2. If new symptoms appear, contact primary care doctor or go to the emergency room. New Medications Levaquin for 7 days Cepacol for sore throat Dixon Rainbow for post nasal drip Robitussin DM for cough Refill albuterol inhaler Referrals: Julien Park [Primary Care Provider] - <Ryan Aldrich - Last Filed: 05/20/17 12:46> Provider - Provider Date of Admission: 05/17/17 00:22 Attending physician: Ryan Aldrich MD Primary care physician: Julien Park MD Hospital Course - Lab Results Lab Results: Micro Results 05/17/17 02:00 Sputum Gram Stain - Final 05/17/17 02:00 Sputum Sputum Culture - Final NORMAL ORAL ARMANDO 05/17/17 03:25 Nose MRSA Culture (Admit) - Final MRSA NOT DETECTED 05/17/17 03:25 Urine Urine Culture - Final No Growth (<1,000 CFU/ML) Most Recent Lab Values WBC 11.6 10^3/ul (4.5-11.0) H D 05/19/17 07:00 RBC 3.94 10^6/uL (3.5-6.1) 05/19/17 07:00 Hgb 11.3 g/dL (14.0-18.0) L 05/19/17 07:00 Hct 34.6 % (42.0-52.0) L 05/19/17 07:00 MCV 87.8 fl (80.0-105.0) 05/19/17 07:00 MCH 28.7 pg (25.0-35.0) 05/19/17 07:00 MCHC 32.7 g/dl (31.0-37.0) 05/19/17 07:00 RDW 13.6 % (11.5-14.5) 05/19/17 07:00 Plt Count 214 10^3/uL (120.0-450.0) 05/19/17 07:00 MPV 9.5 fl (7.0-11.0) 05/19/17 07:00 Gran % 79.0 % (50.0-68.0) H 05/19/17 07:00 Lymph % (Auto) 13.9 % (22.0-35.0) L 05/19/17 07:00 [place] % (Auto) 6.2 % (1.0-6.0) H 05/19/17 07:00 Eos % (Auto) 0.7 % (1.5-5.0) L 05/19/17 07:00 Baso % (Auto) 0.2 % (0.0-3.0) 05/19/17 07:00 Gran # 9.17 (1.4-6.5) H 05/19/17 07:00 Lymph # (Auto) 1.6 (1.2-3.4) 05/19/17 07:00 [place] # (Auto) 0.7 (0.1-0.6) H 05/19/17 07:00 Eos # (Auto) 0.1 (0.0-0.7) 05/19/17 07:00 Baso # (Auto) 0.02 K/mm3 (0.0-2.0) 05/19/17 07:00 Neutrophils % (Manual) 81 % (50.0-70.0) H 05/16/17 21:35 Band Neutrophils % 8 % (0-2) H 05/16/17 21:35 Lymphocytes % (Manual) 6 % (22.0-35.0) L 05/16/17 21:35 Monocytes % (Manual) 5 % (1.0-6.0) 05/16/17 21:35 Platelet Evaluation Normal (NORMAL) 05/16/17 21:35 Anisocytosis (manual) Slight 05/16/17 21:35 PT 18.4 SECONDS (9.4-12.5) H 05/17/17 06:00 INR 1.59 (0.93-1.08) H 05/17/17 06:00 APTT 33.0 Seconds (25.1-36.5) 05/16/17 21:35 pO2 49 mm/Hg (30-55) 05/17/17 01:00 VBG pH 7.31 (7.32-7.43) L 05/17/17 01:00 VBG pCO2 42.0 (40-60) 05/17/17 01:00 VBG HCO3 21.1 mmol/l (21-28) 05/17/17 01:00 VBG Total CO2 22.4 mmol.L (22-28) 05/17/17 01:00 VBG O2 Sat (Calc) 89.8 % (40-65) H 05/17/17 01:00 VBG Base Excess -5.0 mmol/L (0.0-2.0) L 05/17/17 01:00 VBG Potassium 4.1 mmol/L (3.6-5.2) 05/17/17 01:00 Sodium 136.0 mmol/L (132-148) 05/17/17 01:00 Chloride 106.0 mmol/L (98-107) 05/17/17 01:00 Glucose 255 mg/dl (75-110) H 05/17/17 01:00 Lactate 3.3 mmol/L (0.7-2.1) H 05/17/17 01:00 FiO2 21.0 % 05/17/17 01:00 Sodium 143 mmol/L (132-148) 05/19/17 07:00 Potassium 3.9 mmol/L (3.6-5.0) 05/19/17 07:00 Chloride 109 mmol/L (98-107) H 05/19/17 07:00 Carbon Dioxide 24 mmol/L (21-33) 05/19/17 07:00 Anion Gap 14 (10-20) 05/19/17 07:00 BUN 12 mg/dL (7-21) 05/19/17 07:00 Creatinine 0.7 mg/dl (0.8-1.5) L 05/19/17 07:00 Est GFR ( Amer) > 60 05/19/17 07:00 Est GFR (Non-Af Amer) > 60 05/19/17 07:00 POC Glucose (mg/dL) 166 mg/dL (65-110) H 05/19/17 11:30 Random Glucose 161 mg/dL (70-110) H 05/19/17 07:00 Hemoglobin A1c 10.8 % (4.2-6.5) H 05/19/17 07:00 Serum Osmolality 308 mosm/kg (272-300) H 05/16/17 21:35 Calcium 8.8 mg/dL (8.4-10.5) 05/19/17 07:00 Phosphorus 3.4 mg/dL (2.5-4.5) 05/19/17 07:00 Magnesium 2.2 mg/dL (1.7-2.2) 05/19/17 07:00 Total Bilirubin 0.5 mg/dL (0.2-1.3) 05/19/17 07:00 AST 35 U/L (17-59) 05/19/17 07:00 ALT 39 U/L (7-56) 05/19/17 07:00 Alkaline Phosphatase 54 U/L (38-126) 05/19/17 07:00 Lactate Dehydrogenase 425 U/L (333-699) 05/16/17 21:35 Total Creatine Kinase 559 U/L (35-230) H 05/16/17 21:35 CK-MB (CK-2) 0.6 ng/mL (0.0-3.6) 05/16/17 21:35 CK-MB (CK-2) % Cancelled 05/16/17 21:35 Troponin I < 0.01 ng/mL 05/16/17 21:35 Total Protein 6.3 g/dL (5.8-8.3) 05/19/17 07:00 Albumin 3.2 g/dL (3.0-4.8) 05/19/17 07:00 Globulin 3.1 gm/dL 05/19/17 07:00 Albumin/Globulin Ratio 1.0 (1.1-1.8) L 05/19/17 07:00 Procalcitonin 2.35 NG/ML (0.19-0.49) H 05/19/17 07:00 TSH 3rd Generation 3.36 mIU/mL (0.46-4.68) 05/16/17 21:35 Venous Blood Potassium 4.1 mmol/L (3.6-5.2) 05/17/17 01:00 Urine Color Yellow (YELLOW) 05/17/17 03:25 Urine Appearance Clear (CLEAR) 05/17/17 03:25 Urine pH 5.5 (4.7-8.0) 05/17/17 03:25 Ur Specific White 1.025 (1.005-1.035) 05/17/17 03:25 Urine Protein Trace mg/dL (<30 mg/dL) H 05/17/17 03:25 Urine Glucose (UA) Negative mg/dL (NEGATIVE) 05/17/17 03:25 Urine Ketones Trace mg/dL (NEGATIVE) H 05/17/17 03:25 Urine Blood Negative (NEGATIVE) 05/17/17 03:25 Urine Nitrate Positive (NEGATIVE) H 05/17/17 03:25 Urine Bilirubin Small (NEGATIVE) H 05/17/17 03:25 Urine Urobilinogen 0.2 E.U./dL (<1 E.U./dL) 05/17/17 03:25 Ur Leukocyte Esterase Trace Dannielle/uL (NEGATIVE) H 05/17/17 03:25 Urine RBC 0 - 2 /hpf (0-2) 05/17/17 03:25 Urine WBC 5 - 10 /hpf (0-6) 05/17/17 03:25 Ur Epithelial Cells 3 - 4 /hpf (0-5) 05/17/17 03:25 Urine Bacteria Few (NEG) 05/17/17 03:25 Hyaline Casts 0 - 2 /hpf 05/17/17 03:25 Coarse Granular Casts Trace /hpf (0-2) H 05/17/17 03:25 Urine Osmolality 756 mosm/kg (300-1000) 05/17/17 03:25 Ur Random Creatinine 325 mg/dL 05/17/17 03:25 Ur Random Sodium 20 meq/L 05/17/17 03:25 Influenza Typ A,B (EIA) Negative for flu a/b (NEGATIVE) 05/16/17 21:35 Ur L.pneumophila Ag Negative (NEGATIVE) 05/17/17 03:25 Attending/Attestation - Attestation I have personally seen and examined this patient.: Yes I have fully participated in the care of the patient.: Yes I have reviewed all pertinent clinical information, including history, physical exam and plan: Yes Notes (Text): 05/20/17 12:43 attending note; Patient seen and examined with resident. Patient is a 56-year-old male admitted with community-acquired pneumonia. Patient was treated with levofloxacin. Currently pant is afebrile and nontoxic. Stable respiratory status. No hypoxia or tachycardia. Tolerating diet . Ambulating fine. blood culture, urine culture, sputum culture is negative. ID evaluation appreciated. anxiety depression; mood disorder. Currently stable. Patient will be discharged home to complete by mouth levofloxacin. Case discussed with PMD and patient's family in detail by residents. Upon discharge the patient will follow-up with PMD .
--- NOTE | 2017-05-19 17:42 | CP.PCM.PN ---
Subjective - Date & Time of Evaluation Date of Evaluation: 05/19/17 Time of Evaluation: 13:00 - Subjective Subjective: Infectious Disease Follow Up: May 19, 2017 56 yo male with extensive past medical history of DM, HTN, Hyperlipidemia, seizure history, and psoriasis presented with fevers up to 101.0 F at home as well as chills and SOB for 2 days prior to admission. He also felt body aches with nausea and vomiting. Admitted to MICU for evaluation. Started on Levaquin and given a dose of Vancomycin in the ER. Fevers as high as 103.2 F in hospital. [place] cultures sent. Leukocytosis up to 19 and Procalcitonin of 11.45. Patient improving with antibiotic therapy. Cultures have been negative to date. Afebrile as of late. Objective - Vital Signs/Intake and Output Vital Signs (last 24 hours): Temp Pulse Resp BP Pulse Ox 98.6 F 78 20 144/74 95 05/19/17 07:30 05/19/17 07:30 05/19/17 07:30 05/19/17 07:30 05/19/17 07:30 Intake and Output: 05/19/17 05/19/17 06:59 18:59 Intake Total 120 720 Balance 120 720 - Labs Labs: 05/19/17 07:00 05/19/17 07:00 PT 18.4 SECONDS (9.4-12.5) H 05/17/17 06:00 INR 1.59 (0.93-1.08) H 05/17/17 06:00 APTT 33.0 Seconds (25.1-36.5) 05/16/17 21:35 - Constitutional Appears: Non-toxic, No Acute Distress - Head Exam Head Exam: ATRAUMATIC, NORMOCEPHALIC - Eye Exam Eye Exam: EOMI, PERRL Pupil Exam: NORMAL ACCOMODATION, PERRL - ENT Exam ENT Exam: Mucous Membranes Moist, Normal External Ear Exam, TM's Normal Bilaterally - Neck Exam Neck Exam: Full ROM, Normal Inspection - Respiratory Exam Respiratory Exam: Decreased Breath Sounds, NORMAL BREATHING PATTERN. absent: Rales, Rhonchi, Wheezes - Cardiovascular Exam Cardiovascular Exam: REGULAR RHYTHM, RRR, +S1, +S2 - GI/Abdominal Exam GI & Abdominal Exam: Soft, Normal Bowel Sounds. absent: Distended, Tenderness - Extremities Exam Extremities Exam: Full ROM, Normal Inspection - Neurological Exam Neurological Exam: Alert, Awake, CN II-XII Intact, Oriented x3 - Psychiatric Exam Psychiatric exam: Normal Affect, Normal Mood - Skin Skin Exam: Intact, Normal Color Assessment and Plan - Assessment and Plan (Free Text) Assessment: 56 yo male presenting with fevers up to 103.8 F, hypotension, leukocytosis of 19 , procalcitonin value of 11.45, signs of pneumonia on X-ray in right middle lobe. Patient with PCN allergy. Started on Levaquin orally. The patient with negative influenza screen. Influenza titers pending. Possible dehydration as well. Continue on Levaquin. On Tamiflu. Cultures pending. Patient appears to be improving. Afebrile for the last 30 hours. Monitor procalcitonin trend. Procalcitonin down to 2.35. No specific cause found up to this point in time. Supportive care. Thank you for allowing me to participate in the care of the patient, we will follow with you.
[2017-05-20] MEDS ORDERED: levoFLOXacin 750 MG TAB PO SCH (10:00)
[2017-05-22 04:23] LABS: SOURCE SERUM
== END 2017-05-19 15:19 | disposition home or self-care (01) | DRG 871 ==
LOC: ED 20:23 → ERH 05-17 00:22 → CCU 05-17 03:15 → 5RSO 05-17 13:02
PROVIDERS: ADMIT Internal Medicine; ATTEND Internal Medicine
DX: A41.9 Sepsis, unspecified organism (principal); J18.9 Pneumonia, unspecified organism; R65.21 Severe sepsis with septic shock; N17.9 Acute kidney failure, unspecified; E86.0 Dehydration; E83.42 Hypomagnesemia; E83.39 Other disorders of phosphorus metabolism; G40.909 Epilepsy, unspecified, not intractable, without status epilepticus; J45.909 Unspecified asthma, uncomplicated; E78.5 Hyperlipidemia, unspecified; I10 Essential (primary) hypertension; L40.9 Psoriasis, unspecified; F39 Unspecified mood [affective] disorder; E11.9 Type 2 diabetes mellitus without complications; F41.9 Anxiety disorder, unspecified; F32.9 Major depressive disorder, single episode, unspecified; I45.10 Unspecified right bundle-branch block; Z79.84 Long term (current) use of oral hypoglycemic drugs; Z88.0 Allergy status to penicillin